=== PATIENT | male | born 1950 | race Caucasian/White ===

== ENCOUNTER → 2016-06-02 | Outpatient (REF) | payer MEDICARE, OTHER ==
[~2016-06-02] MED LIST: ALDA25TA2 PO; ASPI81TA13 PO; B COTAB PO; BENA25CA2 PO; BUSP5TA PO; CEFA1INJ4 IV; CEFA1INJ5 IV; COLA100C PO; DEMA20TA6 PO; DIOV40TA PO; DRIS50002 PO; FAMO40TA3 PO; FERR325T PO; FERR325T16 PO; FOLI1TAB2 PO; FURO20TA2 PO; GABA-279 PO; GABA300C3 PO; LASI20TA PO; LEVO100T5 PO; LEXA1TAB PO; LIDO5DIS36 TD; LIDO5TD TD; LIPI10TA PO; LOVE1INJ SC; MAGN500T PO; MAGN500T6 PO; MAGN64TASA PO; MELA10CA PO; METO12TA PO; METO25TA PO; METO25TA74 PO; METO25TAB PO; MICR10CA PO; MIDO25TA PO; MIDO5TA PO; MORP30TASA PO; MS C30TA PO; NEUR100C PO; ONDA1TAB15 PO; OXYC10TA12 PO; PERCOCET PO; POTA2TAB2 PO; PROBCAP14 PO; PROT1TAB2 PO; QUET1TAB7 PO; RANI300T PO; ROXI1TAB2 PO; SENO8.6T2 PO; SERO1TAB3 PO; SUCR1SS PO; SYNT50TA PO; TAMS0.4C2 PO; TYLE325T5 PO; VALA500T PO; VITA100066 PO; VITA400C2 PO; VITA500T88 PO; VITA8000 PO; VITAPULSE PO; [UNRECOGNIZED DRUG - CODE] SL
[2016-06-02 15:36] LABS: BASO # 0.1 K/mm3 (0.0-0.2); BASO % 1.1 % (0.0-1.0); EOS # 0.1 K/mm3 (0.0-0.50); EOS % 2.3 % (0.0-3.0); LARGE UNSTAINED CELL # 0.1 K/mm3 (0.0-0.4); LARGE UNSTAINED CELL % 2.2 % (0.0-4.0); LYMPH # 1.3 K/mm3 (1.5-4.5); LYMPH % 20.2 % (24.0-44.0); MEAN CORPUSCULAR HEMOGLOBIN 31.3 pg (27.0-33.0); MEAN CORPUSCULAR VOLUME 94.7 fl (80.0-96.0); MONO # 0.5 K/mm3 (0.0-0.8); MONO % 8.7 % (0.0-5.0); NEUTROPHILS # 3.9 K/mm3 (1.8-7.7); NEUTROPHILS % 65.4 % (36.0-66.0); PLATELET COUNT, AUTOMATED 244 k/mm3 (150-450); RED CELL DISTRIBUTION WIDTH 14.2 % (11.5-14.5)
[2016-06-02 16:06] LABS: ERYTHROCYTE SEDIMENTATION RATE 27 mm/hr (0-20)
[2016-06-02 16:15] LABS: ALBUMIN 2.3 GM/DL (3.2-5.2); ALBUMIN/GLOBULIN RATIO 0.74 (1.00-1.93); ALKALINE PHOSPHATASE 141 U/L (45-117); ALT/SGPT 20 U/L (12-78); ANION GAP 9 MEQ/L (8-16); AST/SGOT 28 U/L (15-37); BILIRUBIN,TOTAL 0.7 MG/DL (0.2-1.0); BLOOD UREA NITROGEN 16 MG/DL (7-18); CALCIUM LEVEL 8.3 MG/DL (8.8-10.2); CARBON DIOXIDE LEVEL 28 MEQ/L (21-32); CHLORIDE LEVEL 98 MEQ/L (98-107); CREATININE FOR GFR 0.82 MG/DL (0.70-1.30); GLOMERULAR FILTRATION RATE > 60.0 (>49); GLUCOSE, FASTING 87 MG/DL (80-110); POTASSIUM SERUM 4.5 MEQ/L (3.5-5.1); SODIUM LEVEL 135 MEQ/L (136-145); TOTAL PROTEIN 5.4 GM/DL (6.4-8.2)
== END ==
LOC: M SFHCPLAZ 14:25
PROVIDERS: ATTEND Internal Medicine Infectious Disease
DX: M46.40 Discitis, unspecified, site unspecified (principal); R63.4 Abnormal weight loss
CPT/HCPCS: 36415; 80053; 84443; 85025; 85652; 86140; G0463

== ENCOUNTER → 2016-08-13 | Outpatient (CLI) | payer MEDICARE, BC, OTHER ==
[~2016-08-13] MED LIST changes: -COLA100C PO; +COLA100C3 PO; +GABA-282 PO; -GABA300C3 PO
[2016-08-13 19:01] LABS: ALBUMIN 2.7 GM/DL (3.2-5.2); ALBUMIN/GLOBULIN RATIO 0.79 (1.00-1.93); ALKALINE PHOSPHATASE 117 U/L (45-117); ALT/SGPT 18 U/L (12-78); ANION GAP 7 MEQ/L (8-16); AST/SGOT 20 U/L (15-37); BILIRUBIN,TOTAL 0.3 MG/DL (0.2-1.0); BLOOD UREA NITROGEN 29 MG/DL (7-18); CALCIUM LEVEL 8.4 MG/DL (8.8-10.2); CARBON DIOXIDE LEVEL 29 MEQ/L (21-32); CHLORIDE LEVEL 96 MEQ/L (98-107); CREATININE FOR GFR 1.07 MG/DL (0.70-1.30); GLOMERULAR FILTRATION RATE > 60.0 (>49); GLUCOSE, FASTING 93 MG/DL (80-110); POTASSIUM SERUM 4.7 MEQ/L (3.5-5.1); SODIUM LEVEL 132 MEQ/L (136-145); TOTAL PROTEIN 6.1 GM/DL (6.4-8.2)
[2016-08-13 19:10] LABS: BASO % 0.6 % (0.0-1.0); EOS # 0.1 K/mm3 (0.0-0.50); EOS % 1.5 % (0.0-3.0); LARGE UNSTAINED CELL # 0.1 K/mm3 (0.0-0.4); LYMPH # 0.9 K/mm3 (1.5-4.5); MEAN CORPUSCULAR HEMOGLOBIN 33.1 pg (27.0-33.0); MEAN CORPUSCULAR HGB CONC 33.2 g/dl (32.0-36.5); MEAN CORPUSCULAR VOLUME 99.7 fl (80.0-96.0); MONO # 0.6 K/mm3 (0.0-0.8); NEUTROPHILS # 7.2 K/mm3 (1.8-7.7); NEUTROPHILS % 79.9 % (36.0-66.0); PLATELET COUNT, AUTOMATED 320 k/mm3 (150-450); RED CELL DISTRIBUTION WIDTH 12.1 % (11.5-14.5)
[2016-08-13 19:12] LABS: FOLATE > 24.0 NG/ML (>5.4); VITAMIN B12 LEVEL 1809 PG/ML (247-911)
[2016-08-13 21:25] LABS: ERYTHROCYTE SEDIMENTATION RATE 106 mm/hr (0-20)
== END ==
LOC: M LAB 16:52
PROVIDERS: ATTEND Family Medicine
DX: E43 Unspecified severe protein-calorie malnutrition (principal); M46.37 Infection of intervertebral disc (pyogenic), lumbosacral region; E11.9 Type 2 diabetes mellitus without complications; Z98.84 Bariatric surgery status

== ENCOUNTER → 2016-08-13 | Outpatient (CLI) | payer MEDICARE, BC, OTHER ==
[2016-08-13 19:01] LABS: ALBUMIN 2.6 GM/DL (3.2-5.2); ALBUMIN/GLOBULIN RATIO 0.76 (1.00-1.93); ALKALINE PHOSPHATASE 111 U/L (45-117); ALT/SGPT 21 U/L (12-78); ANION GAP 7 MEQ/L (8-16); AST/SGOT 19 U/L (15-37); BILIRUBIN,TOTAL 0.2 MG/DL (0.2-1.0); BLOOD UREA NITROGEN 28 MG/DL (7-18); CARBON DIOXIDE LEVEL 29 MEQ/L (21-32); CHLORIDE LEVEL 96 MEQ/L (98-107); CHOLESTEROL LEVEL 106 MG/DL (<200); CREATININE FOR GFR 1.04 MG/DL (0.70-1.30); FERRITIN 489 NG/ML (26-388); GLOMERULAR FILTRATION RATE > 60.0 (>49); GLUCOSE, FASTING 95 MG/DL (80-110); POTASSIUM SERUM 4.7 MEQ/L (3.5-5.1); SODIUM LEVEL 132 MEQ/L (136-145); TRIGLYCERIDES LEVEL 72 MG/DL (<150)
[2016-08-13 19:10] LABS: MEAN CORPUSCULAR VOLUME 99.9 fl (80.0-96.0); RED CELL DISTRIBUTION WIDTH 12.3 % (11.5-14.5)
[2016-08-13 19:13] LABS: FOLATE > 24.0 NG/ML (>5.4); VITAMIN B12 LEVEL 1782 PG/ML (247-911)
== END ==
LOC: M LAB 17:40
PROVIDERS: ATTEND Thoracic Surgery (Cardiothoracic Vascular Surgery)
DX: K90.9 Intestinal malabsorption, unspecified (principal); E56.9 Vitamin deficiency, unspecified

== ENCOUNTER → 2016-08-13 | Outpatient (CLI) | payer MEDICARE, BC, OTHER ==
--- NOTE | 2016-08-13 19:00 | REP ---
RIGHT HIP, TWO VIEWS: HISTORY: Pain. There is no acute fracture or dislocation. There is narrowing of the joint space with associated osteophyte formation. The bony structure is osteopenic. IMPRESSION: Degenerative changes as described above. Signed by Hunter Herring MD 08/13/2016 07:02 P
--- NOTE | 2016-08-13 19:02 | REP ---
RIGHT KNEE, FIVE VIEWS: HISTORY: Pain. There is no acute fracture or dislocation. There is narrowing of the joint spaces. Osteophytes are present on the patella and tibia. The bony structure is osteopenic. Surgical clips are present in the overlying soft-tissue. IMPRESSION: Degenerative change as described above. Signed by Hunter Herring MD 08/13/2016 07:04 P
== END ==
LOC: M RAD 17:01
PROVIDERS: ATTEND Physician Assistant
DX: M16.11 Unilateral primary osteoarthritis, right hip (principal); E43 Unspecified severe protein-calorie malnutrition; M46.37 Infection of intervertebral disc (pyogenic), lumbosacral region; E11.9 Type 2 diabetes mellitus without complications; E56.9 Vitamin deficiency, unspecified; M25.761 Osteophyte, right knee; Z98.84 Bariatric surgery status

== ENCOUNTER 2016-08-20 15:57 | Emergency (ER) | payer MEDICARE, BC, OTHER ==
[~2016-08-20] VITALS: Ht 165.1 cm; Wt 54.4 kg
[2016-08-20] MEDS ORDERED: MORPHINE 2 MG/ML 1ML SYRINGE IV ONE (16:45)
[2016-08-20 17:38] LABS: BASO % 0.6 % (0.0-1.0); EOS # 0.1 K/mm3 (0.0-0.50); EOS % 1.9 % (0.0-3.0); LARGE UNSTAINED CELL # 0.1 K/mm3 (0.0-0.4); LARGE UNSTAINED CELL % 2.1 % (0.0-4.0); LYMPH # 0.9 K/mm3 (1.5-4.5); LYMPH % 13.7 % (24.0-44.0); MEAN CORPUSCULAR HGB CONC 32.8 g/dl (32.0-36.5); MEAN CORPUSCULAR VOLUME 100.6 fl (80.0-96.0); MONO # 0.6 K/mm3 (0.0-0.8); MONO % 9.9 % (0.0-5.0); NEUTROPHILS # 4.5 K/mm3 (1.8-7.7); NEUTROPHILS % 71.8 % (36.0-66.0); PLATELET COUNT, AUTOMATED 266 k/mm3 (150-450); RED CELL DISTRIBUTION WIDTH 12.1 % (11.5-14.5); WHITE BLOOD COUNT 6.3 K/mm3 (4.0-10.0)
[2016-08-20 17:55] LABS: ANION GAP 7 MEQ/L (8-16); BLOOD UREA NITROGEN 36 MG/DL (7-18); CALCIUM LEVEL 8.4 MG/DL (8.8-10.2); CARBON DIOXIDE LEVEL 30 MEQ/L (21-32); CHLORIDE LEVEL 97 MEQ/L (98-107); CREATININE FOR GFR 1.18 MG/DL (0.70-1.30); GLOMERULAR FILTRATION RATE > 60.0 (>49); GLUCOSE, FASTING 86 MG/DL (80-110); MAGNESIUM LEVEL 2.3 MG/DL (1.8-2.4); POTASSIUM SERUM 4.7 MEQ/L (3.5-5.1); SODIUM LEVEL 134 MEQ/L (136-145)
[2016-08-20 18:19] VITALS: BP 90/64
--- NOTE | 2016-08-21 10:59 | REP ---
PA LATERAL CHEST: 08/20/2016. Comparison: 02/10/2016, 02/06/2016. Clinical history: Left-sided chest pain. Findings: Sternotomy wires and clips in the mediastinum are again seen, unchanged. The blunting of the left CP angle, greater than on the two previous studies suggesting effusion and/or scar. The right CP angle is sharply defined. Interstitial changes are much improved compared to the previous study suggesting resolved interstitial edema. There is still some underlying fibrotic change. Suprahilar scarring may be present on the left. No pneumothorax or pneumomediastinum. Anterior and posterior cervical fusion are noted in the lower cervical spine as before. There are left upper quadrant surgical clips. There is colonic interposition between the dome of the liver and the diaphragm as on previous studies. I see no katt edema, gross cardiomegaly or dense consolidation. Impression: 1. Some underlying fibrotic changes and COPD with blunting of left CP angle, increased from the previous study suggesting effusion and/or scar on that left side. The right lung is well inflated and without effusion or definite infiltrate. 2. Prior sternotomy and mediastinal clips with anterior posterior fusion in the cervical spine with hardware and left upper quadrant surgical clips, all stable. 3. The vascular congestion and interstitial edema/interstitial infiltrates on previous studies are resolved with some underlying fibrosis remaining and suprahilar fibrotic changes again seen on the left. Signed by Joon Borges MD 08/23/2016 12:27 P
--- NOTE | 2016-08-22 14:37 | ECGEPIP ---
Stationary ECG Study [facility] - ED Test Date: 2016-08-20 Pat Name: NOLVIA HINSON Department: Room: - Gender: M [employer]: : 1950 Requested By: KERVIN Romero PA-C Order Number: [id number] Reading MD: Eve Kamara Measurements Intervals [place] Rate: 77 P: 39 AL: 135 QRS: -32 QRSD: 112 T: 58 QT: 377 QTc: 427 Interpretive Statements SINUS RHYTHM WITH OCCASIONAL VENTRICULAR PREMATURE COMPLEXES MARKED LEFT AXIS DEVIATION MODERATE INTRAVENTRICULAR CONDUCTION DELAY NONSPECIFIC T-WAVE ABNORMALITY DECREASED RATE 01/26/16 Electronically Signed On 08-22-2016 14:37:10 EDT by Eve Kamara
== END 2016-08-20 18:31 | disposition home or self-care (01) ==
LOC: M ED 16:37
DX: R07.89 Other chest pain (principal); M79.604 Pain in right leg

== ENCOUNTER → 2016-08-26 | Outpatient (REF) | payer MEDICARE, BC, OTHER | LOC: M LABDRAW1 13:22 | PROVIDERS: ATTEND Physician Assistant | DX: R70.0 Elevated erythrocyte sedimentation rate (principal) ==

== ENCOUNTER → 2016-10-08 | Outpatient (REF) | payer MEDICARE, OTHER ==
[2016-10-08 14:01] LABS: BASO # 0.1 K/mm3 (0.0-0.2); BASO % 0.6 % (0.0-1.0); EOS # 0.1 K/mm3 (0.0-0.50); EOS % 1.4 % (0.0-3.0); LARGE UNSTAINED CELL # 0.1 K/mm3 (0.0-0.4); LARGE UNSTAINED CELL % 0.8 % (0.0-4.0); LYMPH # 1.1 K/mm3 (1.5-4.5); LYMPH % 9.8 % (24.0-44.0); MEAN CORPUSCULAR HEMOGLOBIN 28.9 pg (27.0-33.0); MEAN CORPUSCULAR HGB CONC 31.9 g/dl (32.0-36.5); MEAN CORPUSCULAR VOLUME 90.6 fl (80.0-96.0); MONO # 0.9 K/mm3 (0.0-0.8); MONO % 8.6 % (0.0-5.0); NEUTROPHILS # 8.1 K/mm3 (1.8-7.7); NEUTROPHILS % 78.8 % (36.0-66.0); PLATELET COUNT, AUTOMATED 340 k/mm3 (150-450); RED CELL DISTRIBUTION WIDTH 13.1 % (11.5-14.5); WHITE BLOOD COUNT 10.2 K/mm3 (4.0-10.0)
[2016-10-08 14:14] LABS: ALBUMIN 2.9 GM/DL (3.2-5.2); ALBUMIN/GLOBULIN RATIO 0.76 (1.00-1.93); ALKALINE PHOSPHATASE 117 U/L (45-117); ALT/SGPT 27 U/L (12-78); ANION GAP 6 MEQ/L (8-16); AST/SGOT 27 U/L (15-37); BILIRUBIN,TOTAL 0.6 MG/DL (0.2-1.0); BLOOD UREA NITROGEN 35 MG/DL (7-18); CALCIUM LEVEL 8.8 MG/DL (8.8-10.2); CARBON DIOXIDE LEVEL 33 MEQ/L (21-32); CHLORIDE LEVEL 97 MEQ/L (98-107); CREATININE FOR GFR 1.01 MG/DL (0.70-1.30); GLOMERULAR FILTRATION RATE > 60.0 (>49); GLUCOSE, FASTING 96 MG/DL (80-110); POTASSIUM SERUM 4.7 MEQ/L (3.5-5.1); SODIUM LEVEL 136 MEQ/L (136-145); TOTAL PROTEIN 6.7 GM/DL (6.4-8.2)
[2016-10-08 14:28] LABS: ERYTHROCYTE SEDIMENTATION RATE 85 mm/hr (0-20)
== END ==
LOC: M LABDRAWP 12:30
PROVIDERS: ATTEND Family Medicine
DX: E43 Unspecified severe protein-calorie malnutrition (principal); M46.37 Infection of intervertebral disc (pyogenic), lumbosacral region; K21.9 Gastro-esophageal reflux disease without esophagitis; E11.9 Type 2 diabetes mellitus without complications

== ENCOUNTER → 2016-10-08 | Outpatient (REF) | payer MEDICARE, OTHER ==
[2016-10-08 14:18] LABS: CHOLESTEROL LEVEL 104 MG/DL (<200); FERRITIN 568 NG/ML (26-388); TRIGLYCERIDES LEVEL 65 MG/DL (<150); VITAMIN B12 LEVEL > 2000 PG/ML
[2016-10-08 14:19] LABS: FOLATE > 24.0 NG/ML
[2016-10-12 14:14] LABS: VITAMIN D 1,25 DIHYDROXY 32.8 pg/mL (19.9-79.3)
== END ==
LOC: M LABDRAWP 12:32
PROVIDERS: ATTEND Thoracic Surgery (Cardiothoracic Vascular Surgery)
DX: M46.37 Infection of intervertebral disc (pyogenic), lumbosacral region (principal); K90.9 Intestinal malabsorption, unspecified; E64.0 Sequelae of protein-calorie malnutrition; K21.9 Gastro-esophageal reflux disease without esophagitis; E11.9 Type 2 diabetes mellitus without complications

== ENCOUNTER 2016-10-23 13:00 | Emergency (ER) | payer MEDICARE, OTHER ==
[~2016-10-23] VITALS: Ht 165.1 cm; Wt 62.0 kg
[~2016-10-23 13:00] MED LIST changes: -ASPI81TA13 PO; +ASPI81TA24 PO; -COLA100C3 PO; +COLA100C5 PO; +FERR1TAB8 PO; -FERR325T PO; -FOLI1TAB2 PO; +FOLI1TAB4 PO; -LIDO5DIS36 TD; +LIDO5DIS41 TD; +METO1TAB32 PO; -METO25TA74 PO; +MIDO2.5T PO; -MIDO25TA PO; -MS C30TA PO; +MS C30TA6 PO; -ONDA1TAB15 PO; +ONDA4TAB5 PO; -SENO8.6T2 PO; +SENO8.6T5 PO; -VALA500T PO; +VALA500T2 PO; -VITA400C2 PO; +VITA400C7 PO; -VITA8000 PO; +VITA80003 PO; +[UNRECOGNIZED DRUG - CODE] SL; -[UNRECOGNIZED DRUG - CODE] SL
[2016-10-23] MEDS ORDERED: NS 500 ML IV ONE ×2 (13:30→15:00)
[2016-10-23 13:45] LABS: DIFF SLIDE NUMBER 129; MEAN CORPUSCULAR HEMOGLOBIN 28.3 pg (27.0-33.0); MEAN CORPUSCULAR HGB CONC 32.6 g/dl (32.0-36.5); MEAN CORPUSCULAR VOLUME 86.9 fl (80.0-96.0); PLATELET COUNT, AUTOMATED 320 k/mm3 (150-450); RED CELL DISTRIBUTION WIDTH 13.6 % (11.5-14.5); WHITE BLOOD COUNT 14.6 K/mm3 (4.0-10.0)
[2016-10-23] MEDS ORDERED: ACETAMINOPHEN TAB 650MG DOSE (2X325MG) PO ONE (13:45)
[2016-10-23] MEDS ORDERED: MIDO2.5T PO ×2 (13:47→15:49)
[2016-10-23] MEDS ORDERED: OXYC1CAP PO ×2 (13:55→15:49)
[2016-10-23] MEDS ORDERED: MORP30TASA PO ×2 (13:55→15:49)
[2016-10-23 13:59] LABS: ALBUMIN 2.5 GM/DL (3.2-5.2); ALBUMIN/GLOBULIN RATIO 0.61 (1.00-1.93); BILIRUBIN,DIRECT 0.2 MG/DL (0.0-0.2); BILIRUBIN,TOTAL 0.7 MG/DL (0.2-1.0); CALCIUM LEVEL 7.9 MG/DL (8.8-10.2); CREATININE FOR GFR 1.44 MG/DL (0.70-1.30); GLOMERULAR FILTRATION RATE 51.9 (>49); POTASSIUM SERUM 4.6 MEQ/L (3.5-5.1); TOTAL PROTEIN 6.6 GM/DL (6.4-8.2)
[2016-10-23] MEDS ORDERED: cefTRIAXone SOD 2 GM in D5W MINI-BAG PLUS 50 ML IV ONE (14:00)
[2016-10-23] MEDS ORDERED: AZITHROMYCIN INJ 500 MG, VIAL MATE ADAPTER 1 EACH in D5W 250 ML IV ONE (14:00)
--- NOTE | 2016-10-23 14:02 | REP ---
Clinical: Altered mental status. Comparison: None . Findings: Age-related atrophy and microvascular ischemic changes are appreciated. The ventricles and sulci are symmetric. Garsia-white differentiation is maintained. There is no evidence for acute intracranial hemorrhage, mass/mass effect, pathology or infarction. No extra-axial fluid collection. Calvarium is intact. Paranasal sinuses and mastoid air cells are clear. Impression: Age related atrophy and microvascular ischemic changes. No acute intracranial hemorrhage, infarction, or mass/mass effect. Signed by Bruce Beckham MD 10/23/2016 01:53 P
--- NOTE | 2016-10-23 14:04 | REP ---
Clinical: Shortness of breath. Technique: AP and lateral. Comparison: 08/20/2016. Findings: Cardiomegaly with diffuse chronic interstitial changes with superimposed bilateral infiltrates and moderate to large left effusion. Differential diagnosis includes CHF and multifocal pneumonia. Impression: Superimposed bilateral infiltrates and moderate to large left effusion. Differential diagnosis includes CHF and multifocal pneumonia. Signed by Bruce Beckham MD 10/23/2016 01:56 P
[2016-10-23 14:07] LABS: ADD MANUAL DIFFER NO; ADD MORPHOLOGY? NO; BASO # 0.1 K/mm3 (0.0-0.2); BASO % 0.3 % (0.0-1.0); LARGE UNSTAINED CELL # 0.2 K/mm3 (0.0-0.4); LARGE UNSTAINED CELL % 1.3 % (0.0-4.0); LYMPH # 0.6 K/mm3 (1.5-4.5); LYMPH % 4.1 % (24.0-44.0); MONO % 6.5 % (0.0-5.0); NEUTROPHILS # 13.7 K/mm3 (1.8-7.7); NEUTROPHILS % 87.8 % (36.0-66.0)
[2016-10-23] MEDS ORDERED: BUSP5TA PO (15:49)
[2016-10-23] MEDS ORDERED: MAGN400T5 PO (15:49)
[2016-10-23] MEDS ORDERED: ONDA4TAB5 PO (15:49)
[2016-10-23] MEDS ORDERED: LIDO5DIS41 TD (15:49)
[2016-10-23] MEDS ORDERED: GABA-282 PO ×2 (15:49)
[2016-10-23] MEDS ORDERED: DRIS50002 PO (15:49)
[2016-10-23] MEDS ORDERED: SYNT100T PO (15:49)
[2016-10-23] MEDS ORDERED: SPIR25TA2 PO (15:49)
[2016-10-23] MEDS ORDERED: TORS20TA2 PO (15:49)
[2016-10-23] MEDS ORDERED: LEXA1TAB PO (15:49)
[2016-10-23] MEDS ORDERED: PANT40TA2 PO (15:49)
[2016-10-23] MEDS ORDERED: MAGN500T14 PO (15:51)
[2016-10-23] MEDS ORDERED: DOPamine HCL 400 MG in APPROPRIATE DILUENT 1 EA IV SCH (16:15)
[2016-10-23 16:18] LABS: ABG BASE EXCESS 6.7 (-2.0-2.0); ABG HCO3 31.3 MEQ/L (22.0-26.0); ABG PARTIAL PRESSURE CO2 45.5 mmHg (35.0-45.0); ABG PARTIAL PRESSURE O2 70.4 mmHg (75.0-100.0); ABG STANDARD HCO3 30.5 MEQ/L (22.0-26.0); ABG TOTAL CO2 32.7 MEQ/L (23.0-31.0); ABG pH (ARTERIAL) 7.456 UNITS (7.350-7.450)
[2016-10-23] MEDS ORDERED: FUROSEMIDE 40 MG/4 ML VIAL (J1940) IV ONE (16:45)
[2016-10-23 18:22] VITALS: BP 93/61
--- NOTE | 2016-10-23 21:27 | ECGEPIP ---
Stationary ECG Study [facility] - ED Test Date: 2016-10-23 Pat Name: NOLVIA HINSON Department: Room: - Gender: M [employer]: patt : 1950 Requested By: BRAD Taylor Order Number: [id number] Reading MD: Eve Kamara Measurements Intervals [place] Rate: 108 P: 26 MA: 124 QRS: -68 QRSD: 122 T: 121 QT: 356 QTc: 478 Interpretive Statements SINUS TACHYCARDIA POSSIBLE RIGHT VENTRICULAR CONDUCTION DELAY LEFT ANTERIOR FASCICULAR BLOCK MODERATE ST DEPRESSION CLINICAL CORRELATION COMPARED 08/20/16 Electronically Signed On 10-23-2016 21:27:13 EDT by Eve Kamara
--- NOTE | 2016-10-23 21:29 | ECGEPIP ---
Stationary ECG Study [facility] - ED Test Date: 2016-10-23 Pat Name: NOLVIA HINSON Department: Room: - Gender: M [employer]: patt : 1950 Requested By: BRAD Taylor Order Number: [id number] Reading MD: Eve Kamara Measurements Intervals [place] Rate: 87 P: 67 FL: 144 QRS: -62 QRSD: 120 T: 185 QT: 396 QTc: 477 Interpretive Statements SINUS RHYTHM LAE LEFT ANTERIOR FASCICULAR BLOCK INFERIOR MYOCARDIAL INFARCTION, OF INDETERMINATE AGE MODERATE T-WAVE ABNORMALITY, CONSIDER LATERAL ISCHEMIA DECREASED RATE 10/23/16 Electronically Signed On 10-23-2016 21:29:17 EDT by Eve Kamara
--- NOTE | 2016-10-23 22:08 | CR ---
DATE OF CONSULTATION: 10/23/2016 CHIEF COMPLAINT: A 66-year-old gentleman coming in complaining of shortness of breath. 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 The patient was evaluated in the emergency room, noted to have soft blood pressure in the 90s with saturation in the 70s on room air, with abnormal laboratory of troponin if 3.57, and brain natriuretic peptide (BNP) greater than 5000, hyponatremia of 128, with chest x-ray findings superimposed bilateral infiltrates with moderate to large left effusion. Differential diagnosis includes congestive heart failure (CHF) and multifocal pneumonia, who does not utilize any home oxygen therapy such as nasal cannula or continuous positive airway pressure (CPAP) or bilevel positive airway pressure (BiPAP). The patient received oxygen therapy saturating 98% on six liters of nasal cannula. Emergency room (ER) physician spoke to Dr. Oconnell who suspected initially that the patient had ischemic cardiac demand due to pneumonia. He requested admission for pneumonia treatment with intravenous (IV) fluids. Dr. Banks the basket machine operator was consulted. Due to severity of patient's condition , as his last known ejection fraction again is 30% in 2016, with elevated BNP and positive troponin, suspected a possible pending cardiogenic shock and need for further intervention suggests cardiac catheterization, balloon pump, [place], CPAP, BiPAP, or intubation along with pressors and Lasix drip. The patient is intermittently lucid, able to provide some medical history, but at times confused and disoriented. The patient denies having any chest pain, denies having any chest pain previously. Complained of shortness of breath that started two weeks ago, but also informs the staff that he had difficulty breathing two years ago. Denies any abdominal pain, diarrhea or dysuria. The patient has lower extremity swelling that seemed to come up to the knee and thigh bilaterally. After conversing with the specialists Dr. Banks and Dr. Oconnell who had evaluated the patient in the emergency room, there was an agreement that the patient should be transferred to tertiary center for further evaluation and treatment, as the patient also mentioned that he wanted aggressive therapy and FULL CODE as last known in 2016. His cardiologists are in [place]; therefore, the patient will be transferred to [place] for further intervention and treatment and evaluation. REVIEW OF SYSTEMS: 10-point review of systems negative other than as described in the history of present illness (HPI). 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 SURGICAL HISTORY Includes a history of cervical fusion, gastric bypass, CABG times three, triple bypass at [facility], cardiac catheterization times three, status post one stent in 2002, appendectomy, osteomyelitis of the right arm ulnar bone graft in 1960. FAMILY MEDICAL HISTORY: Includes father with heart disease with bypass, COPD, diabetes, toe gangrene, aneurysm. Mother with massive coronary heart attack, bypass, pacemaker, thyroid disease, pancreatitis. Brother with severe arthritis, diabetes. Sister with gestational diabetes, along with stroke, thyroid disease. Family history of Von Willebrand disease and kidney stones. SOCIAL HISTORY: The patient denies smoking, drinking or drug abuse. ALLERGIES: 1. BEE VENOM 2. BROMPHENIRAMINE 3. CONTRAST MEDIA 4. HEXACHLOROPHENE 5. IODINATED DIAGNOSTIC AGENT 6. LACTOSE 7. MAGNESIUM 8. PSEUDOEPHEDRINE 9. QUETIAPINE 10. RIFAMPIN which causes diarrhea. HOME MEDICATIONS: - buspirone 5 mg by mouth three times a day - Lexapro 10 mg by mouth daily - gabapentin 300 mg by mouth daily - gabapentin 600 mg by mouth at bedtime - Synthroid 100 mcg by mouth daily - lidocaine three patches transdermal every 12 hours - magnesium oxide 500 mg by mouth at bedtime - midodrine 2.5 mg by mouth three times a day - morphine sulfate ER 30 mg by mouth twice a day - Zofran 4 mg by mouth every four hours as needed for nausea - oxycodone hydrochloride 10 mg by mouth three times a day - pantoprazole 40 mg by mouth daily - spironolactone 25 mg by mouth daily - torsemide 20 mg by mouth twice a day - vitamin D 50,000 units by mouth two times per week, Tuesday and PHYSICAL EXAMINATION: VITAL SIGNS: His initial blood pressure was 99/68, temperature 99.7, heart rate of 104, respiratory rate 18, saturating 78% on room air, improved to 96% on oxygen therapy. The patient's blood pressure fluctuated lowest at 77/56. Last known blood pressure 93/61. Temperature is 98.7, heart rate of 92, respiratory rate of 20, saturating 98% on CPAP along with the patient is on a dopamine drip with Barrientos placement and status post Lasix therapy. HEENT: Normocephalic. No trauma. Inspection of the eyes, nose and throat is within normal limits. Pupils equal, round, and reactive to light and accommodation. Mucus is moist. NECK: Supple. Jugular venous distention (JVD) noted positive. CARDIAC: S1, S2. Regular rate and rhythm. Pulses present. LUNGS: Equal entry, wheezes are noted, crackles bilaterally. ABDOMEN: Soft, nontender. Bowel sounds present. EXTREMITIES: Lower extremity pitting edema up to the thigh bilaterally. The patient currently has CPAP, dopamine drip, status post Lasix therapy, Barrientos. NEUROLOGIC: The patient is awake, alert intermittently, able to provide some lucid medical information at times. Cranial nerves grossly intact. Motor and sensory intact but limited due to initially shortness of breath. DIAGNOSTIC STUDIES: The patient had WBC of 14.6, hemoglobin and hematocrit of 8.6 and 26.5, platelet count 320. Complete metabolic profile is within normal except for sodium of 128, chloride 89, BUN of 48, creatinine 1.44. Fasting glucose 135. Calcium is 7.9. Albumin is 2.5. Otherwise complete metabolic profile is within normal. Troponin is elevated to 3.57, increased to 3.81. BNP is elevated greater than 5000. TSH is within normal. Lactate is 1.7. Urine negative for urinary tract infection. PH of 7.456, pCO2 of 45.5, pO2 of 70.4, bicarbonate of 31.3, saturating 91.1. MICROBIOLOGY: Urine culture and blood culture are pending. IMAGING: Shows CT of the head which was negative for any acute process, but as per radiology, showed age-related atrophy and microvascular ischemic changes. Chest x-ray as per radiology showed superimposed bilateral infiltrates and moderate to large left effusion. Differential diagnosis includes CHF and multifocal pneumonia. ASSESSMENT AND PLAN: 66-year-old gentleman with significant past medical history mentioned above, with last known ejection fraction of 30% in 2016, and FULL CODE last noted in 2016, who currently informed us that he wanted aggressive therapy, had stent placement and sign language teacher in [place], status post evaluation by Dr. Oconnell and Dr. Banks in the emergency room, believes that patient will be better treated with optimal medical management at [place] for NSTEMI, pulmonary edema, and cardiogenic shock; and need for cardiology intervention not available in [place]. Therefore, the patient is being transferred from the emergency room to [place] under their care. The patient is status post oxygen therapy, CPAP, dopamine drip, femoral line placement by staff, along with initiation of dopamine drip, Lasix therapy as recommended by Floyd Cortes and transfer accepted by [place]. We will defer further management to the ER physician and staff at [place]. HARIKA
--- NOTE | 2016-10-23 22:08 | CR ---
DATE OF CONSULTATION: 10/23/2016 REFERRING PHYSICIAN: Dr. Derick Wick. REASON FOR CONSULTATION: Cardiogenic shock, acute on chronic heart failure, acute pulmonary edema, non-ST segment elevation myocardial infarction (N-STEMI). HISTORY OF PRESENT ILLNESS: At present, the patient is having difficulty providing a history because he is quite ill with hypotension and pulmonary edema. The patient was able to tell me that he had a prior three-vessel coronary artery bypass graft surgery operation in 1995, in [place], [place]. To his knowledge he has never had a prior heart attack or percutaneous coronary intervention of any type. He has no knowledge of any prior heart failure. The patient presented to the emergency room (ER) earlier today with chest pain and shortness of breath. He was mildly febrile and had leukocytosis and bilateral infiltrates on chest x-ray and a very elevated brain natriuretic peptide (BNP) level and a mildly elevated troponin I level. I have reviewed a discharge summary on this patient from his hospitalization to [facility] [place] dated 02/11/2016, until 04/07/2016. This indicates the presence of coronary artery disease, chronic systolic heart failure, hypothyroidism, chronic obstructive pulmonary disease (COPD). I was told at the patient's bedside by Dr. Rafaela Banks who was present, that a quick look on the echocardiogram showed an ejection fraction of about "30%." Jugular venous pulsations were to the angle of the jaw at about 30 degrees. Edentulous. The patient was oriented to person and place and time. He was not in any psychologic distress. Bibasilar crackles over the lower half lung gonzalez are present. Midline sternal scar present. First and second heart sounds showed accentuation of the P2 component of the second heart sound. An S3 was present. No S4 appreciated. [place] beat was enlarged in the left fifth interspace at the left midclavicular line. Abdomen was soft and nontender with normal bowel sounds. No cyanosis, pallor or icterus. 4 mm of pitting edema was present at mid and distal tibial level bilaterally. Pedal pulses were not palpable. Electrocardiogram 10/23/2016, shows sinus rhythm, 87 beats per minute (BPM), poor R-wave progression, prominent S waves and S1, S2, S3 pattern, consider pulmonary disease, left axis deviation, borderline low voltages. Nonspecific ST-T abnormalities, consider anterolateral ischemia. Cannot rule out old inferior wall myocardial infarction. With poor R-wave progression, consider old anterior wall myocardial infarct. At the time of examination, the patient had a blood pressure of 83/59, and a pulse of 88 (regular). Respiratory rate 18, temperature 100.3 rectal, and 99.7 oral. Oxygen saturation was 96% on oxygen four liters per minute by nasal cannula. I have independently visualized the patient's portable AP chest x-ray 10/23/2016 , and it shows cardiomegaly, midline sternal wires, and mediastinal surgical clips consistent with status post coronary artery bypass graft (CABG). Bilateral patchy alveolar infiltrates, bilateral interstitial and patchy alveolar pulmonary edema. Cannot rule out a left pleural effusion. No right pleural effusion. Pulmonary vascular redistribution is present. LABORATORY DATA: Laboratory work 10/23/2016, was reviewed. WBC 14.6, hemoglobin 8.6, hematocrit 26.5, platelets 320. Sodium 128, potassium 4.6, chloride 89, CO2 30, BUN 48, creatinine 1.44, GFR 51.9, glucose 135, lactic acid 1.7, troponin I 3.57, CPK 72 , CPK-MB 2.5%, can be 3.47%, BNP greater than 5000. Albumin 2.5. TSH 3.28. Arterial blood gas showed bicarbonate 30.5, pH 7.456, pCO2 45.5, pO2 70.4, bicarbonate 31.4, CO2 32.7, oxygen saturation 93.1%. ASSESSMENT AND RECOMMENDATIONS: 1. Cardiogenic shock. The patient has underlying systolic and diastolic heart failure. He is now in cardiogenic shock and decompensated heart failure with bilateral alveolar pulmonary edema. He is also in hypoxic respiratory failure with superimposed metabolic alkalosis. He is FULL CODE. His prognosis is poor with an anticipated in-hospital survival of about 10% over the next 30 days. His troponin I is elevated which most likely is due to subendocardial hypoperfusion due to severe heart failure, but could also be due to acute coronary thrombosis with a primary non-ST segment elevation myocardial infarction. He is in the process of getting a central line inserted following which he will be placed on pressors (dopamine) which I concur with. It is my recommendation that the patient be transferred to [facility] for tertiary care management, and I spoke with Dr. Banks and Dr. Rodrick North, the ER physician, who are in agreement. Dr. Rodrick North contacted [facility] to make arrangements for the patient to be transferred. Once the patient has been placed on pressors and blood pressure improves, I recommend the patient be given a high dose of furosemide. 2. Acute on chronic systolic and diastolic heart failure. As per cardiogenic shock category above. 3. Acute pulmonary edema secondary to acute on chronic systolic and diastolic heart failure. As per cardiogenic shock category above. 4. Non-ST segment elevation myocardial infarction (N-STEMI). As discussed above, this could be secondary to heart failure or it could be a new primary coronary ischemic event. Recommend IV heparin, aspirin, and Plavix. Total time spent looking after this patient at the bedside, and preparing this portion of the patient's medical record, and reviewing his medical records was 33 minutes. HARIKA
--- NOTE | 2016-10-24 12:02 | CCN ---
DATE: 10/23/2016 NOTE: I was asked to emergently come to the emergency department to assist the hospitalist with Mr. Rhodes. Mr. Rhodes is a 66-year-old male who was transported to the hospital for change in mental status. When EMS arrived, he apparently had been saturating in the 80th percentile. Upon arrival to the emergency department, he was saturating 73 % on room air which corrected to 99% on 6 liters by nasal cannula. His immediate workup included a chest x-ray which showed pulmonary edema and an EKG which showed inversion of the T waves in the anterior leads and BNP greater than 5000. The history that they had was that he had had a fever recently to 103 degrees (later clarified with his , two days ago). On arrival to the emergency department, his temperature rectally was 100.3. His white blood cell count was 14.3. Arterial blood gas was obtained which showed a compensated metabolic alkalemia. He had been given 500 mL of normal saline upon arrival while he was being stabilized. When I spoke with Mr. Rhodes, he denied any cough. He denied shortness of breath. He noted pain in his right hip but denied chest pain or pressure. He was confused and could not offer much additional history. His physical examination had shown him to be saturating 99-100% on 6 liters by nasal cannula. He was lying on the gurney at a 45-50 degree angle. His blood pressure showed a MAP of 67, respiratory rate was in the high teens to low 20s. His heart rate upon arrival had been in the 110's but was now 85. HEENT showed him to be anicteric. Oral mucosa was moist. Neck showed elevated IJD to the level of his ears. Lung exam showed diffuse crackles throughout, heard both anteriorly and posteriorly. No wheeze or rhonchi. Cardiac evaluation showed regular rate and rhythm, normal S1 and S2. No murmur, rub or gallop appreciated. Abdomen showed positive bowel sounds. It was soft and nondistended. Extremities showed 2+ pedal edema, 1+ pretibial edema. His extremities initially were neutral in temperature and throughout our evaluation became cooler. It became apparent that he was experiencing cardiogenic shock. Dr. Oconnell was contacted and asked to come in to help in the management. Multiple attempts were made to reach his family. That included calling his whose phone inadvertently had been give to the patient and it rang in he emergency department room. The emergency department personnel attempted to contact his sons, a "uncle Troy" and several others on her phone without success. Eventually we called the [place] emergency department and asked if they have different contact numbers, which they did not, and then they were asked to go to his home. In the meantime, conversations with Mr. Rhodes between myself and the three hospitalists who were in attendance did not yield clear answers as to what his wishes were. We explained the limitations of what we could do for cardiogenic shock, but made it clear that we could not offer the full services if intervention was needed. He kept telling us he would like to stay here as he told us that "liked us." He did not decline or accept transfer to [place]. Personnel had reviewed his chart and as of the fall he was a FULL CODE. Other findings on his examination and on his chest x-ray had shown that he had had a previous coronary artery bypass grafting (CABG). He denied a stent or angioplasty (later his clarified to me that he did have a stent and had a recent catheterization last fall that had shown a blockage, but he had collaterals). 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 He could tell us he was in [place] but not the type of building he was in. In terms of his immediate management, a femoral line was placed by Dr. Nicole as he could not lay supine for an IJ or subclavian line to be placed. I had him started on CPAP for both preload reduction and to decrease afterload as an left ventricular assist device. Dr. Oconnell had arrived and felt he should be immediately transferred. His had arrived and I informed her of the situation and she consented to a transfer, stating a preference for [place] as that is where his assistant women's tennis coach was located. He is followed locally by Dr. Araya. After the central line was placed, he was started on low dose dopamine with an attempt to increase his pressure to allow a diuretic to be given. The dosage was very low in an attempt to try to prevent tachycardia. On a very low dose of dopamine 0.5 mcg/ kg per minute he was able to achieve a systolic of around 90 and a MAP of 72 allowing us to feel we could give Lasix. On the CPAP he was very comfortable and breathing easily. He was felt ready to transfer at this time and he was transferred to [place]. DIAGNOSIS: 1. Cardiogenic shock. 2. Pulmonary edema. DISPOSITION: Transfer to [place]. CRITICAL CARE TIME: I was involved in the emergency department with him for 1 hour and 55 minutes. However, there were multiple providers involved and while I was involved the entire time, I feel my individual critical care time involved 60 minutes. HARIKA
== END 2016-10-23 18:28 | disposition short-term general hospital (02) ==
LOC: M ED 13:00 → EDSEX 13:00 → EDBD 13:00 → M ED 18:28
DX: I21.4 Non-ST elevation (NSTEMI) myocardial infarction (principal); R57.0 Cardiogenic shock; D64.9 Anemia, unspecified; J18.9 Pneumonia, unspecified organism; I50.9 Heart failure, unspecified; J44.9 Chronic obstructive pulmonary disease, unspecified; E03.9 Hypothyroidism, unspecified; G89.29 Other chronic pain; M54.5 Low back pain; K21.9 Gastro-esophageal reflux disease without esophagitis; Z88.8 Allergy status to other drugs, medicaments and biological substances; Z91.030 Bee allergy status; Z91.041 Radiographic dye allergy status; Z91.011 Allergy to milk products; Z79.82 Long term (current) use of aspirin; Z79.899 Other long term (current) drug therapy
CPT/HCPCS: 36556; 36600; 70450; 71020; 80048; 80076; 81001; 82550; 82553; 82803; 83605; 83880; 84443; 84484; 85025; 87040; 87086; 93005; 93041; 96361; 96374; 96375; 99285; J0456; J0696; J1265; J1940

== ENCOUNTER → 2016-11-04 | Outpatient (REF) ==
[~2016-11-04] MED LIST changes: +ASPI81TA85 PO; +ATOR1TAB21 PO; +DOCU100T8 PO; +DULC10SU2 PR; +ENEMENE16 PR; +GABA600T PO; +IPRA2IN INH; +KEFL500C17 PO; +LISI2.5T3 PO; +MAGN400T5 PO; +MAGN500T14 PO; +MIRA33504 PO; +MORP-38 PO; +OXYC-517 PO; +OXYC1CAP PO; +PANT40TA2 PO; +SPIR25TA2 PO; +SYNT100T PO; +TORS20TA2 PO
--- NOTE | 2016-11-04 16:38 | REP ---
Right hip and a single AP view: Comparisons 08/13/2016. There is a fracture of the femoral neck, not present previously. There is no displacement. There is diffuse demineralization. Impression: Nondisplaced femoral neck fracture. Signed by Matias Serrato MD 11/04/2016 04:30 P
[2016-11-04 18:36] LABS: MEAN CORPUSCULAR HEMOGLOBIN 28.1 pg (27.0-33.0); MEAN CORPUSCULAR HGB CONC 31.1 g/dl (32.0-36.5); MEAN CORPUSCULAR VOLUME 90.4 fl (80.0-96.0); RED CELL DISTRIBUTION WIDTH 14.4 % (11.5-14.5)
== END ==
PROVIDERS: ATTEND Internal Medicine
DX: L03.119 Cellulitis of unspecified part of limb (principal)

== ENCOUNTER 2016-11-05 08:28 | Inpatient (IN) | payer MEDICARE, BC, OTHER ==
[~2016-11-05 08:28] MED LIST changes: -ASPI81TA85 PO; -ATOR1TAB21 PO; -DOCU100T8 PO; -DULC10SU2 PR; -ENEMENE16 PR; -GABA600T PO; -IPRA2IN INH; -KEFL500C17 PO; -LISI2.5T3 PO; -MIRA33504 PO; -MORP-38 PO; -OXYC-517 PO
[2016-11-05] MEDS ORDERED: METO1TAB32 PO (08:58)
[2016-11-05] MEDS ORDERED: LISI2.5T3 PO (08:58)
[2016-11-05] MEDS ORDERED: ATOR1TAB21 PO (08:58)
[2016-11-05] MEDS ORDERED: MORP-38 PO (08:58)
[2016-11-05] MEDS ORDERED: ASPI81TA85 PO (08:58)
[2016-11-05] MEDS ORDERED: FURO20TA2 PO (08:58)
[2016-11-05] MEDS ORDERED: KEFL500C17 PO (08:58)
[2016-11-05] MEDS ORDERED: FUROSEMIDE 20 MG TAB PO SCH (09:00)
[2016-11-05 09:25] LABS: MEAN CORPUSCULAR HEMOGLOBIN 27.4 pg (27.0-33.0); MEAN CORPUSCULAR VOLUME 88.4 fl (80.0-96.0); PLATELET COUNT, AUTOMATED 282 k/mm3 (150-450); RED CELL DISTRIBUTION WIDTH 14.4 % (11.5-14.5); WHITE BLOOD COUNT 5.1 K/mm3 (4.0-10.0)
[2016-11-05 09:30] LABS: ALBUMIN 2.1 GM/DL (3.2-5.2); ALKALINE PHOSPHATASE 87 U/L (45-117); ALT/SGPT 15 U/L (12-78); ANION GAP 3 MEQ/L (8-16); AST/SGOT 20 U/L (15-37); BASO # 0.1 K/mm3 (0.0-0.2); BASO % 1.5 % (0.0-1.0); BILIRUBIN,DIRECT 0.2 MG/DL (0.0-0.2); BILIRUBIN,TOTAL 0.4 MG/DL (0.2-1.0); BLOOD UREA NITROGEN 11 MG/DL (7-18); CALCIUM LEVEL 7.6 MG/DL (8.8-10.2); CARBON DIOXIDE LEVEL 33 MEQ/L (21-32); CHLORIDE LEVEL 91 MEQ/L (98-107); CREATININE FOR GFR 0.55 MG/DL (0.70-1.30); EOS # 0.2 K/mm3 (0.0-0.50); EOS % 4.4 % (0.0-3.0); GLOMERULAR FILTRATION RATE > 60.0 (>49); GLUCOSE, FASTING 86 MG/DL (80-110); LARGE UNSTAINED CELL # 0.1 K/mm3 (0.0-0.4); LARGE UNSTAINED CELL % 2.1 % (0.0-4.0); LYMPH # 0.7 K/mm3 (1.5-4.5); LYMPH % 12.8 % (24.0-44.0); MONO # 0.5 K/mm3 (0.0-0.8); MONO % 8.8 % (0.0-5.0); NEUTROPHILS # 3.6 K/mm3 (1.8-7.7); NEUTROPHILS % 70.5 % (36.0-66.0); SODIUM LEVEL 127 MEQ/L (136-145); TOTAL PROTEIN 5.1 GM/DL (6.4-8.2)
[2016-11-05 09:39] LABS: INR 1.31
[2016-11-05] MEDS: NS 1,000 ML IV SCH ×2 (09:46→20:08)
--- NOTE | 2016-11-05 09:47 | REP ---
AP pelvis: Comparison is the right hip study dated 11/04/2016. There is a fracture of the right femoral neck. There is diffuse demineralization. There is deformity of the right iliac wing. There is no dislocation. Signed by Matias Serrato MD 11/05/2016 09:38 A
--- NOTE | 2016-11-05 09:50 | REP ---
Right femur four views: Comparison 11/04/2016. There is diffuse demineralization. There is a fracture of the right femoral neck. This may be a pathologic fracture. There is deformity of the right iliac wing. The femoral shaft demonstrates demineralization. There appears to be bowing of the femoral shaft although this could be artifact from projection. No other fracture is identified. There is no dislocation of the femoral head. Signed by Matias Serrato MD 11/05/2016 09:42 A
--- NOTE | 2016-11-05 10:06 | REP ---
CHEST, ONE VIEW: HISTORY: Preop. COMPARISON: 10/23/2016. A diffuse increased in interstitial markings is present in the lungs consistent with chronic interstitial fibrosis. Increased density is present in the left lower lobe consistent with atelectasis or infiltrate. A small left pleural effusion is present. The cardiac silhouette is enlarged. IMPRESSION: 1. Chronic interstitial fibrosis. 2. Left lower lobe atelectasis or infiltrate and small left pleural effusion. 3. Cardiomegaly. Signed by Hunter Herring MD 11/05/2016 10:24 A
[2016-11-05] MEDS ORDERED: PANT40TA2 PO (10:18)
[2016-11-05] MEDS ORDERED: MIRA33504 PO (10:18)
[2016-11-05] MEDS ORDERED: GABA600T PO (10:18)
[2016-11-05] MEDS ORDERED: DOCU100T8 PO (10:18)
[2016-11-05] MEDS ORDERED: OXYC-517 PO (10:18)
[2016-11-05] MEDS ORDERED: DULC10SU2 PR (10:23)
[2016-11-05] MEDS ORDERED: IPRA2IN INH (10:23)
[2016-11-05] MEDS ORDERED: ENEMENE16 PR (10:23)
[2016-11-05] MEDS ORDERED: SPIR25TA2 PO (10:23)
[2016-11-05] MEDS ORDERED: BISACODYL 10 MG SUPP PR PRN (12:15)
[2016-11-05] MEDS ORDERED: MIRALAX *UNIT DOSE* 17GM PACKET PO PRN (12:15)
[2016-11-05] MEDS ORDERED: ACETAMINOPHEN TAB 650MG DOSE (2X325MG) PO PRN (12:15)
[2016-11-05] MEDS ORDERED: FLEET ENEMA PR PRN (12:15)
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
[2016-11-05] MEDS: IPRATROPIUM 0.02% SOLN 0.5MG/2.5 ML NEB INH SCH ×2 (14:00→19:48)
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
--- NOTE | 2016-11-05 16:38 | HPEPDOC ---
General Date of Admission Nov 05, 2016 at 12:06 Chief Complaint The patient is a 66-year-old male Presented to the ER from [facility] because of right hip pain that was found to be a fracture. History of Present Illness Patient is a 66 year old male with a PMHx of Systolic CHF 2/2 Ischemic cardiomyopathy (EF: 30%), CAD (s/p CABG x3 [1995], Stent [2002]), A. fib (not on anticoagulation), Hypotension, DLP, DM2, Chronic anemia, Hypothyroidism, COPD, GERD, Anxiety, Chronic neck and back pain (2/2 C3-C7 fusion and spinal stenosis), Hx of osteomyelitis (s/p R ulna bone graft 1960). He presented to the ER from [facility] because he was found to have a fracture of his right hip. Patient has noted to have this persistent right hip pain since 2016. He received an XR on 08/2016 that was reported negative at that time. He notes that he ambulates very poorly and requires a walker. Since that point he has had continuous pain of the hip. Patient recently presented to the [facility] ER on 10/23/2016 for SOB. At that time he was found to have cardiogenic shock and NSTEMI. He was transferred to [facility] at that time. He was discharge from there on 11/04 to [facility]. Imaging of his hip was completed on 11/04/16 which was positive for a non-displaced femoral neck fracture. Patient was transferred to [facility] ER for evaluation. Patient notes that chronically has low blood pressure. He has not followed up with his regular master electrician, Dr. Araya since 08/2016. He notes that currently he does not have SOB, CP, palpitations, nausea, vomiting, abdominal pain, constipation, diarrhea or urinary symptoms. He denies any orthopnea or PND at this time. I have discussed the case with Dr. Tian (Orthopedic surgeon) and Dr. Araya ( Aquacultural Worker Supervisor). At this time the patient is at high risk for surgery and it was decided that the patient should be transferred back to [facility] for continued treatment. However, Dr. Velez has notified me that the facility is not willing to accept. Cardiology will be called on consult for evaluation and cardiac clearance. Home Medications Scheduled Aspirin (Aspir-81) 81 Mg Tab, 81 MG PO DAILY, (Reported) Atorvastatin Calcium (Atorvastatin Calcium) 20 Mg Tab, 20 MG PO QHS, (Reported) Buspirone HCl (Buspirone HCl) 5 Mg Tab, 5 MG PO TID, (Reported) Cephalexin Monohydrate (Keflex) 500 Mg Cap, 500 MG PO BID, (Reported) FINISH DATE 11/10 Docusate Sodium (Docusate Sodium) 100 Mg Tab, 100 MG PO DAILY, (Reported) Escitalopram Oxalate (Lexapro) 10 Mg Tab, 10 MG PO DAILY, (Reported) Furosemide (Furosemide) 20 Mg Tab, 20 MG PO DAILY, (Reported) Gabapentin (Gabapentin) 300 Mg Cap, 300 MG PO DAILY, (Reported) Gabapentin (Gabapentin) 600 Mg Tab, 600 MG PO QHS, (Reported) Ipratropium Giltner (Ipratropium Giltner) 0.5 Mg/2.5 Ml Soln, 0.5 MG INH TID, ( Reported) Levothyroxine Sodium (Synthroid) 100 Mcg Tab, 100 MCG PO DAILY, (Reported) Lidocaine (Lidoderm) 5 % Dis, 1 PATCH TD QHS, (Reported) 12 HOURS ON, 12 HOURS OFF FOR POST HERPATIC PAIN Lisinopril (Lisinopril) 2.5 Mg Tab, 2.5 MG PO DAILY, (Reported) Metoprolol Succinate (Metoprolol Succinate ER) 25 Mg Tab, 25 MG PO DAILY, ( Reported) Morphine Sulfate (Morphine Sulfate ER) 15 Mg Tab, 15 MG PO TID, (Reported) Pantoprazole Sodium (Pantoprazole Sodium) 40 Mg Tab, 40 MG PO DAILY, (Reported) Spironolactone (Spironolactone) 25 Mg Tab, 12.5 MG PO DAILY, (Reported) Scheduled PRN Bisacodyl (Dulcolax) 10 Mg Sup, 10 MG SD DAILY PRN for CONSTIPATION, (Reported) Oxycodone HCl (Oxycodone HCl) 5 Mg Tab, 5 MG PO Q6H PRN for PAIN, (Reported) Polyethylene Glycol (Miralax) 1 Pow Pow, 17 GM PO DAILY PRN for CONSTIPATION, ( Reported) Sodium Phosphate/Biphosphate (Enema 7-19 gm/118Ml) 1 Asya Asya, 1 ASYA SD DAILY PRN for CONSTIPATION, (Reported) Allergies Coded Allergies: Bee Venom (Unverified Allergy, Unknown, 01/06/16) Brompheniramine (Unverified Allergy, Unknown, 09/16/15) Contrast Media (Unverified Allergy, Unknown, UNKNOWN, 01/06/16) Hexachlorophene (Unverified Allergy, Unknown, 09/16/15) Iodinated Diagnostic Agents (Unverified Allergy, Unknown, 09/16/15) Lactose (Unverified Allergy, Unknown, 01/06/16) Pseudoephedrine (Unverified Allergy, Unknown, 09/16/15) Magnesium (Unverified Adverse Reaction, Unknown, DIARRHEA, 01/06/16) Quetiapine (Unverified Adverse Reaction, Unknown, NIGHT TERRORS, 01/06/16) Rifampin (Unverified Adverse Reaction, Unknown, DIARRHEA, 01/06/16) Past Medical History Medical History Systolic CHF 2/2 Ischemic cardiomyopathy (EF: 30%), CAD (s/p CABG x3 [1995], Stent [2002]), A. 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 Review of Symptoms Other systems Constitutional: Reports weight loss, Poor appetite, No recent trauma Eyes: No visual changes or eye pain Ears, Nose, Throat: Denies nose bleeds, or difficulty swallowing Cardiovascular: Denies chest pain, sweating, or orthopnea Respiratory: Denies cough, wheezing, or shortness of breath GI: Alfonso nausea, vomiting, abdominal pain, diarrhea or constipation : Denies pain with urination or frequency Musculoskeletal: Reports right hip pain and difficulty with walking Neuro / Psych: Denies muscle weakness or sensory loss Skin: No skin rashes noted All other review of systems negative; otherwise stated in history of present illness Vital Signs - Vitals: BP 96/66, HR 96, RR 18, Sat 99%NC3L, Temp 98.9F - General: Lying in bed, No acute distress, Speaking in full sentences, AAOx3 - HEENT: NC, AT, PERRLA - CVS: RRR, +S1S2, - Lungs: Fair air entry bilaterally, No appreciable wheezing / rhonchi / rales - Abdomen: Soft, Non-distended, Non-tender, + Bowel sounds x 4 - Extremities: 1+ pitting edema up to ankles, No calf tenderness; Right hip tenderness - Neuro: No focal motor or sensory deficit - Skin: No visible rashes Laboratory Data Labs 24H Laboratory Tests 2 11/05/16 08:42: Prothrombin Time 16.6H, Prothromb Time International Ratio 1.31 11/05/16 08:53: White Blood Count 5.1, Red Blood Count 3.23L, Hemoglobin 8.8L, Hematocrit 28.6L , Mean Corpuscular Volume 88.4, Mean Corpuscular Hemoglobin 27.4, Mean Corpuscular Hemoglobin Concent 31.0L, Red Cell Distribution Width 14.4, Platelet Count 282, Neutrophils (%) (Auto) 70.5H, Lymphocytes (%) (Auto) 12.8L, Monocytes (%) (Auto) 8.8H, Eosinophils (%) (Auto) 4.4H, Basophils (%) (Auto) 1.5H, Neutrophils # (Auto) 3.6, Lymphocytes # (Auto) 0.7L, Monocytes # (Auto) 0.5, Eosinophils # (Auto) 0.2, Basophils # (Auto) 0.1, Large Unclassified Cells % 2.1, Large Unclassified Cells # 0.1, Platelet Estimate NORMAL, Anion Gap 3L, Glomerular Filtration Rate > 60.0, Lactic Acid Level 0.5, Calcium Level 7.6L, Magnesium Level 2.0, Aspartate Amino Transf (AST/SGOT) 20, Alanine Aminotransferase (ALT/SGPT) 15, Alkaline Phosphatase 87, Total Bilirubin 0.4, Direct Bilirubin 0.2, Total Protein 5.1L, Albumin 2.1L, Albumin/Globulin Ratio 0.70L CBC/BMP Laboratory Tests 11/05/16 08:53 Red Blood Count 3.23 L, Mean Corpuscular Volume 88.4, Mean Corpuscular Hemoglobin 27.4, Mean Corpuscular Hemoglobin Concent 31.0 L, Red Cell Distribution Width 14.4, Neutrophils (%) (Auto) 70.5 H, Lymphocytes (%) (Auto) 12.8 L, Monocytes (%) (Auto) 8.8 H, Eosinophils (%) (Auto) 4.4 H, Basophils (%) (Auto) 1.5 H, Neutrophils # (Auto) 3.6, Lymphocytes # (Auto) 0.7 L, Monocytes # (Auto) 0.5, Eosinophils # (Auto) 0.2, Basophils # (Auto) 0.1 Microbiology Microbiology 11/05/16 Blood Culture, Received Pending 11/05/16 Blood Culture, Received Pending Plan / VTE VTE Prophylaxis Ordered?: Yes Plan Plan Right hip pain likely 2/2 non-displaced right femoral neck fracture - Presented to ER after he was found to have a fracture on imaging on 11/04/16 done at [facility] - Physical reveals right hip tenderness - XR Femor 11/05: fracture of right femoral neck may be pathological - CT hip 11/05: nonunion of femoral neck fracture with posterior displacement of distal component of the fracture and pseudoarthrosis; no evidence of abscess, osteomyelitis or neoplasm - Pelvic XR 11/05: Negative - Patient is a high risk surgical candidate and cardiology will be consulted for further evaluation - Case discussed with Dr. Araya and Dr. Tian both on consult Systolic CHF 2/2 Ischemic cardiomyopathy (EF: 30%) - Appears to be well compensated - c/w Lisinopril and Metoprolol - c/w existing dose of Furosemide and Spironolactone CAD (s/p CABG x3 [1995], Stent [2002]) - c/w ASA 81 and Atorvastatin 20 A. fib (not on anticoagulation) - c/w rate control with metoprolol succinate 25 Hypotension - SBP has run around high 80s to 90s DLP - c/w atorvastatin DM2 - c/w ISS Chronic anemia - Hg appears to be at baseline - Will continue to follow Hypothyroidism - c/w levothyroxine COPD - c/w Duoneb PRN Anxiety - c/w Escitalopram Chronic neck and back pain (2/2 C3-C7 fusion and spinal stenosis) - c/w pain control as outpatient (Gabapentin, MS Contin, Oxycontin) GERD - c/w Protonix DVT prophylaxis - c/w SCDs - Will discuss with surgery if no surgery is indicated will change to pharmacological LG HATCH MD Nov 05, 2016 16:38
[2016-11-05] MEDS ORDERED: DEXTROSE 50% 50 ML SYRINGE IV PRN (16:45)
[2016-11-05] MEDS ORDERED: IPRATROPIUM 0.5MG/ALBUTEROL 2.5MG INH SOL UD 3ML (DUONEB)(J7620) NEB PRN (16:45)
[2016-11-05] MEDS ORDERED: GLUCOSE 4 GM CHEW TABLET PO PRN (16:45)
[2016-11-05] MEDS ORDERED: GLUCAGON FOR INJ 1 MG VIAL (J1610) SC PRN (16:45)
[2016-11-05] MEDS: oxyCODONE 5MG TAB PO PRN (17:10)
[2016-11-05] MEDS: HumaLOG INSULIN (NovoLOG) PER UNIT SC SCH (17:30)
[2016-11-05 18:44] VITALS: BP 100/71
[2016-11-05] MEDS: busPIRone 5 MG TAB PO SCH ×3 (19:30→20:08)
[2016-11-05] MEDS: ESCITALOPRAM OXALATE 10 MG TAB (LEXAPRO) PO SCH (19:42)
[2016-11-05] MEDS: DOCUSATE SODIUM 100 MG CAP PO SCH (19:42)
[2016-11-05] MEDS: ASPIRIN 81 MG ENTERIC TAB PO SCH (19:42)
[2016-11-05] MEDS: SPIRONOLACTONE 12.5MG PER 1/2 TABLET PO SCH (19:43)
[2016-11-05] MEDS: PANTOPRAZOLE 40MG TAB (PROTONIX) PO SCH (19:43)
[2016-11-05 19:46] VITALS: BP 98/65
[2016-11-05 20:00] VITALS: BP 100/66
[2016-11-05] MEDS: MORPHINE 15 MG SA TAB PO SCH (20:08)
[2016-11-05] MEDS: CEPHALEXIN 500 MG CAP PO SCH (20:08)
[2016-11-05] MEDS: **NOTE PATIENT COMMENT** MISC XX SCH (20:12)
[2016-11-05] MEDS: GABAPENTIN 300 MG CAP PO SCH (20:12)
[2016-11-05] MEDS ORDERED: LIDOCAINE 5% (LIDODERM) PATCH TD SCH (21:00)
[2016-11-05] MEDS ORDERED: HumaLOG INSULIN (NovoLOG) PER UNIT SC SCH (21:00)
[2016-11-05] MEDS ORDERED: GABAPENTIN 300 MG CAP PO SCH (21:00)
[2016-11-05] MEDS ORDERED: ATORVASTATIN 20 MG TAB PO SCH (21:00)
[2016-11-05] MEDS: LISINOPRIL *2.5 MG* TAB PO SCH (21:25)
[2016-11-05] MEDS: METOPROLOL SUCC *XL* 25MG TAB (TopROL *XL*) PO SCH (21:26)
[2016-11-05] MEDS ORDERED: ONDANSETRON 4MG/2ML VIAL (J2405) IV SCH (22:00)
[2016-11-05 23:59] VITALS: BP 93/65
[2016-11-06] MEDS ORDERED: ONDANSETRON 4MG/2ML VIAL (J2405) IV PRN (01:34)
[2016-11-06] MEDS: oxyCODONE 5MG TAB PO PRN ×3 (02:55→18:41)
[2016-11-06 04:45] VITALS: BP 90/66
[2016-11-06] MEDS: NS 1,000 ML IV SCH ×2 (05:26→13:04)
[2016-11-06] MEDS ORDERED: LEVOTHYROXINE 100MCG TABLET (0.1MG) PO SCH (06:00)
[2016-11-06 06:33] LABS: BASO # 0.1 K/mm3 (0.0-0.2); BASO % 1.2 % (0.0-1.0); EOS # 0.1 K/mm3 (0.0-0.50); EOS % 2.9 % (0.0-3.0); LARGE UNSTAINED CELL # 0.1 K/mm3 (0.0-0.4); LARGE UNSTAINED CELL % 1.6 % (0.0-4.0); LYMPH # 0.8 K/mm3 (1.5-4.5); LYMPH % 14.5 % (24.0-44.0); MEAN CORPUSCULAR HEMOGLOBIN 28.2 pg (27.0-33.0); MEAN CORPUSCULAR VOLUME 88.2 fl (80.0-96.0); MONO # 0.5 K/mm3 (0.0-0.8); MONO % 9.1 % (0.0-5.0); NEUTROPHILS # 3.5 K/mm3 (1.8-7.7); NEUTROPHILS % 70.6 % (36.0-66.0); PLATELET COUNT, AUTOMATED 255 k/mm3 (150-450); RED CELL DISTRIBUTION WIDTH 14.2 % (11.5-14.5); WHITE BLOOD COUNT 4.9 K/mm3 (4.0-10.0)
[2016-11-06 06:51] LABS: ALBUMIN/GLOBULIN RATIO 0.61 (1.00-1.93); ALKALINE PHOSPHATASE 81 U/L (45-117); ALT/SGPT 15 U/L (12-78); ANION GAP 3 MEQ/L (8-16); AST/SGOT 18 U/L (15-37); BILIRUBIN,TOTAL 0.4 MG/DL (0.2-1.0); BLOOD UREA NITROGEN 10 MG/DL (7-18); CALCIUM LEVEL 8.1 MG/DL (8.8-10.2); CARBON DIOXIDE LEVEL 31 MEQ/L (21-32); CHLORIDE LEVEL 91 MEQ/L (98-107); CREATININE FOR GFR 0.52 MG/DL (0.70-1.30); GLOMERULAR FILTRATION RATE > 60.0 (>49); GLUCOSE, FASTING 82 MG/DL (80-110); MAGNESIUM LEVEL 1.8 MG/DL (1.8-2.4); POTASSIUM SERUM 4.8 MEQ/L (3.5-5.1); SODIUM LEVEL 125 MEQ/L (136-145); TOTAL PROTEIN 5.3 GM/DL (6.4-8.2)
[2016-11-06] MEDS: HumaLOG INSULIN (NovoLOG) PER UNIT SC SCH ×3 (06:52→17:28)
[2016-11-06] MEDS: IPRATROPIUM 0.02% SOLN 0.5MG/2.5 ML NEB INH SCH ×2 (07:29→13:46)
[2016-11-06 08:00] VITALS: BP 91/65
[2016-11-06 08:03] LABS: FREE T4 1.33 NG/DL (0.76-1.46)
[2016-11-06 08:41] VITALS: BP 89/62
[2016-11-06] MEDS: SPIRONOLACTONE 12.5MG PER 1/2 TABLET PO SCH (08:52)
[2016-11-06] MEDS: LISINOPRIL *2.5 MG* TAB PO SCH (08:52)
[2016-11-06] MEDS: METOPROLOL SUCC *XL* 25MG TAB (TopROL *XL*) PO SCH (08:52)
[2016-11-06] MEDS: CEPHALEXIN 500 MG CAP PO SCH (08:53)
[2016-11-06] MEDS: PANTOPRAZOLE 40MG TAB (PROTONIX) PO SCH (08:54)
[2016-11-06] MEDS: ESCITALOPRAM OXALATE 10 MG TAB (LEXAPRO) PO SCH (08:54)
[2016-11-06] MEDS: ASPIRIN 81 MG ENTERIC TAB PO SCH (08:54)
[2016-11-06] MEDS: MORPHINE 15 MG SA TAB PO SCH (08:54)
[2016-11-06] MEDS: busPIRone 5 MG TAB PO SCH ×2 (08:55→17:28)
[2016-11-06] MEDS: DOCUSATE SODIUM 100 MG CAP PO SCH (08:55)
[2016-11-06] MEDS: GABAPENTIN 300 MG CAP PO SCH (08:55)
[2016-11-06] MEDS ORDERED: FUROSEMIDE 40 MG TAB PO SCH (09:00)
[2016-11-06] MEDS: **NOTE PATIENT COMMENT** MISC XX SCH (09:54)
[2016-11-06] MEDS ORDERED: FUROSEMIDE 20 MG TAB PO ONE ×2 (10:00→13:00)
--- NOTE | 2016-11-06 10:59 | DS.PDOC ---
Discharge Summary General Date of Admission Nov 05, 2016 at 12:06 Date of Discharge 11/06/2016 Discharge Summary PROCEDURES PERFORMED DURING STAY: None. ADMITTING DIAGNOSES: 1. Right hip pain - likely 2/2 non-displaced right femoral neck fracture 2. Systolic CHF- 2/2 Ischemic cardiomyopathy (EF: 30%) COMPLICATIONS/CHIEF COMPLAINT: The patient is a 66-year-old male Presented to the ER from [facility] because of right hip pain that was found to be a fracture. HISTORY OF PRESENT ILLNESS: Patient is a 66 year old male with a PMHx of Systolic CHF 2/2 Ischemic cardiomyopathy (EF: 30%), CAD (s/p CABG x3 [1995], Stent [2002]), A. fib (not on anticoagulation), Hypotension, DLP, DM2, Chronic anemia, Hypothyroidism, COPD, GERD, Anxiety, Chronic neck and back pain (2/2 C3-C7 fusion and spinal stenosis), Hx of osteomyelitis (s/p R ulna bone graft 1960). He presented to the ER from [facility] because he was found to have a fracture of his right hip. Patient has noted to have this persistent right hip pain since 2016. He received an XR on 08/2016 that was reported negative at that time. He notes that he ambulates very poorly and requires a walker. Since that point he has had continuous pain of the hip. Patient recently presented to the [facility] ER on 10/23/2016 for SOB. At that time he was found to have cardiogenic shock and NSTEMI. He was transferred to [facility] at that time. He was discharge from there on 11/04 to [facility]. Imaging of his hip was completed on 11/04/16 which was positive for a non-displaced femoral neck fracture. Patient was transferred to [facility] ER for evaluation. Patient notes that chronically has low blood pressure. 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 Araya since 08/2016. He notes that currently he does not have SOB, CP, palpitations, nausea, vomiting, abdominal pain, constipation, diarrhea or urinary symptoms. He denies any orthopnea or PND at this time. HOSPITAL COURSE: Right hip pain - likely 2/2 non-displaced right femoral neck fracture - Presented to ER after he was found to have a fracture on imaging on 11/04/16 done at [facility] - Physical reveals right hip tenderness - XR Femor 11/05: fracture of right femoral neck, may be pathological - CT hip 11/05: nonunion of femoral neck fracture with posterior displacement of distal component of the fracture and pseudoarthrosis; no evidence of abscess, osteomyelitis or neoplasm - Pelvic XR 11/05: Negative - Case discussed with cardiology (Dr. Araya); will evaluate today - Case discussed with orthopedic surgery (Dr. oRbles); will need higher level of care for cardiac monitoring for surgery Systolic CHF - 2/2 Ischemic cardiomyopathy (EF: 30%) - Appears to be well compensated - c/w Lisinopril and Metoprolol - c/w existing dose of Spironolactone - Increased dose of Furosemide to 40 PO Hyponatremia; hypotonic; likely hypervolemic / euvolemic - Possibly related to CHF - Will check Urine Sodium, Creatinine and Osmolality - Will increase dose of lasix CAD (s/p CABG x3 [1995], Stent [2002]) - c/w ASA 81 and Atorvastatin 20 A. fib (not on anticoagulation) - c/w rate control with metoprolol succinate 25 Hypotension - SBP has run around high 80s to 90s DLP - c/w atorvastatin DM2 - c/w ISS Chronic anemia - Hg appears to be at baseline - Hg stable - will follow Hypothyroidism - c/w levothyroxine COPD - c/w Duoneb PRN Anxiety - c/w Escitalopram Chronic neck and back pain (2/2 C3-C7 fusion and spinal stenosis) - c/w pain control as outpatient (Gabapentin, MS Contin, Oxycontin) GERD - c/w Protonix DVT prophylaxis - c/w SCDs DISCHARGE MEDICATIONS: Please see below. ALLERGIES: Please see below. PHYSICAL EXAMINATION ON DISCHARGE: VITAL SIGNS: Please see below. Vitals (See below) General: Lying in bed, no acute distress, comfortable, AAOx3 HEENT: NC, AT CVS: +S1S2 Lungs: Fair air entry b/l, -w/r/r Abdomen: Soft, ND, NT, +BSx4 Extremities: 1+ pitting edema up to ankles bilaterally, - Calf tenderness; Right hip pain / mild erythema LABORATORY DATA: Please see below. DISCHARGE PLAN / DISPOSITION: Transfer to [facility] for continued cardiac monitoring, pre and post surgery. Will accept patient back for continued rehabilitation if required. DISCHARGE CONDITION: Guarded TIME SPENT ON DISCHARGE: Greater than 35 minutes. Vital Signs/I&Os Vital Signs Date Time Temp Pulse Resp B/P (MAP) Pulse Ox O2 Delivery O2 Flow Rate FiO2 11/06/16 08:54 18 Nasal Cannula 2.0 11/06/16 08:41 89/62 (71) 11/06/16 08:00 97.8 77 100 I&O- Last 24 Hours up to 6 AM 11/06/16 06:00 Intake Total 1440 ml Output Total 700 ml Balance 740 ml Laboratory Data Labs 24H Laboratory Tests 2 11/05/16 17:31: Bedside Glucose (Misc Panel) 111 11/05/16 20:10: Bedside Glucose (Misc Panel) 142H 11/06/16 05:18: Osmolality 264L, B-Type Natriuretic Peptide 1540H 11/06/16 05:24: White Blood Count 4.9, Red Blood Count 3.08L, Hemoglobin 8.7L, Hematocrit 27.1L , Mean Corpuscular Volume 88.2, Mean Corpuscular Hemoglobin 28.2, Mean Corpuscular Hemoglobin Concent 32.0, Red Cell Distribution Width 14.2, Platelet Count 255, Neutrophils (%) (Auto) 70.6H, Lymphocytes (%) (Auto) 14.5L, Monocytes (%) (Auto) 9.1H, Eosinophils (%) (Auto) 2.9, Basophils (%) (Auto) 1.2H , Neutrophils # (Auto) 3.5, Lymphocytes # (Auto) 0.8L, Monocytes # (Auto) 0.5, Eosinophils # (Auto) 0.1, Basophils # (Auto) 0.1, Large Unclassified Cells % 1.6 , Large Unclassified Cells # 0.1, Anion Gap 3L, Glomerular Filtration Rate > 60.0, Blood Urea Nitrogen 10, Creatinine 0.52L, Sodium Level 125L, Potassium Level 4.8, Chloride Level 91L, Carbon Dioxide Level 31, Calcium Level 8.1L, Aspartate Amino Transf (AST/SGOT) 18, Alanine Aminotransferase (ALT/SGPT) 15, Alkaline Phosphatase 81, Total Bilirubin 0.4, Total Protein 5.3L, Albumin 2.0L, Magnesium Level 1.8, Albumin/Globulin Ratio 0.61L, Thyroid Stimulating Hormone ( TSH) 3.890H, Free Thyroxine 1.33 CBC/BMP Laboratory Tests 11/06/16 05:24 Red Blood Count 3.08 L, Mean Corpuscular Volume 88.2, Mean Corpuscular Hemoglobin 28.2, Mean Corpuscular Hemoglobin Concent 32.0, Red Cell Distribution Width 14.2, Neutrophils (%) (Auto) 70.6 H, Lymphocytes (%) (Auto) 14.5 L, Monocytes (%) (Auto) 9.1 H, Eosinophils (%) (Auto) 2.9, Basophils (%) ( Auto) 1.2 H, Neutrophils # (Auto) 3.5, Lymphocytes # (Auto) 0.8 L, Monocytes # ( Auto) 0.5, Eosinophils # (Auto) 0.1, Basophils # (Auto) 0.1, Calcium Level 8.1 L , Aspartate Amino Transf (AST/SGOT) 18, Alanine Aminotransferase (ALT/SGPT) 15, Alkaline Phosphatase 81, Total Bilirubin 0.4, Total Protein 5.3 L, Albumin 2.0 L FSBS Laboratory Tests Test 11/05/16 17:31 11/05/16 20:10 Range/Units Bedside Glucose (Misc Panel) 111 142 80-115 MG/DL Microbiology Microbiology 11/05/16 Blood Culture - Preliminary, Resulted No growth after 24 hours . All specim... 11/05/16 Blood Culture - Preliminary, Resulted No growth after 24 hours . All specim... Discharge Medications Scheduled Aspirin (Aspir-81) 81 Mg Tab, 81 MG PO DAILY, (Reported) Atorvastatin Calcium (Atorvastatin Calcium) 20 Mg Tab, 20 MG PO QHS, (Reported) Buspirone HCl (Buspirone HCl) 5 Mg Tab, 5 MG PO TID, (Reported) Cephalexin Monohydrate (Keflex) 500 Mg Cap, 500 MG PO BID, (Reported) FINISH DATE 11/10 Docusate Sodium (Docusate Sodium) 100 Mg Tab, 100 MG PO DAILY, (Reported) Escitalopram Oxalate (Lexapro) 10 Mg Tab, 10 MG PO DAILY, (Reported) Furosemide (Furosemide) 20 Mg Tab, 20 MG PO DAILY, (Reported) Gabapentin (Gabapentin) 300 Mg Cap, 300 MG PO DAILY, (Reported) Gabapentin (Gabapentin) 600 Mg Tab, 600 MG PO QHS, (Reported) Ipratropium Jefferson (Ipratropium Jefferson) 0.5 Mg/2.5 Ml Soln, 0.5 MG INH TID, ( Reported) Levothyroxine Sodium (Synthroid) 100 Mcg Tab, 100 MCG PO DAILY, (Reported) Lidocaine (Lidoderm) 5 % Dis, 1 PATCH TD QHS, (Reported) 12 HOURS ON, 12 HOURS OFF FOR POST HERPATIC PAIN Lisinopril (Lisinopril) 2.5 Mg Tab, 2.5 MG PO DAILY, (Reported) Metoprolol Succinate (Metoprolol Succinate ER) 25 Mg Tab, 25 MG PO DAILY, ( Reported) Morphine Sulfate (Morphine Sulfate ER) 15 Mg Tab, 15 MG PO TID, (Reported) Pantoprazole Sodium (Pantoprazole Sodium) 40 Mg Tab, 40 MG PO DAILY, (Reported) Spironolactone (Spironolactone) 25 Mg Tab, 12.5 MG PO DAILY, (Reported) Scheduled PRN Bisacodyl (Dulcolax) 10 Mg Sup, 10 MG NC DAILY PRN for CONSTIPATION, (Reported) Oxycodone HCl (Oxycodone HCl) 5 Mg Tab, 5 MG PO Q6H PRN for PAIN, (Reported) Polyethylene Glycol (Miralax) 1 Pow Pow, 17 GM PO DAILY PRN for CONSTIPATION, ( Reported) Sodium Phosphate/Biphosphate (Enema 7-19 gm/118Ml) 1 Asya Asya, 1 ASYA NC DAILY PRN for CONSTIPATION, (Reported) Allergies Coded Allergies: Bee Venom (Unverified Allergy, Unknown, 01/06/16) Brompheniramine (Unverified Allergy, Unknown, 09/16/15) Contrast Media (Unverified Allergy, Unknown, UNKNOWN, 01/06/16) Hexachlorophene (Unverified Allergy, Unknown, 09/16/15) Iodinated Diagnostic Agents (Unverified Allergy, Unknown, 09/16/15) Lactose (Unverified Allergy, Unknown, 01/06/16) Pseudoephedrine (Unverified Allergy, Unknown, 09/16/15) Magnesium (Unverified Adverse Reaction, Unknown, DIARRHEA, 01/06/16) Quetiapine (Unverified Adverse Reaction, Unknown, NIGHT TERRORS, 01/06/16) Rifampin (Unverified Adverse Reaction, Unknown, DIARRHEA, 01/06/16) LG HATCH MD Nov 06, 2016 10:59
--- NOTE | 2016-11-06 11:25 | ECGEPIP ---
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
[2016-11-06 12:00] VITALS: BP 107/75
[2016-11-06 15:43] LABS: ANION GAP 4 MEQ/L (8-16); BLOOD UREA NITROGEN 9 MG/DL (7-18); CALCIUM LEVEL 7.8 MG/DL (8.8-10.2); CARBON DIOXIDE LEVEL 33 MEQ/L (21-32); CHLORIDE LEVEL 89 MEQ/L (98-107); CREATININE FOR GFR 0.51 MG/DL (0.70-1.30); GLOMERULAR FILTRATION RATE > 60.0 (>49); GLUCOSE, FASTING 102 MG/DL (80-110); MAGNESIUM LEVEL 1.8 MG/DL (1.8-2.4); SODIUM LEVEL 126 MEQ/L (136-145)
[2016-11-06 16:00] VITALS: BP 97/65
[2016-11-08 09:54] LABS: CORTISOL BASELINE 9.1 UG/DL (4.3-22.4)
== END 2016-11-06 18:54 | disposition short-term general hospital (02) | DRG 536 ==
LOC: M ED 08:28 → EDBD 08:28 → M ED INP 12:06 → M PCU 18:37
PROVIDERS: ADMIT Internal Medicine; ATTEND Internal Medicine
DX: S72.044A Nondisplaced fracture of base of neck of right femur, initial encounter for closed fracture (principal); I50.22 Chronic systolic (congestive) heart failure; E87.0 Hyperosmolality and hypernatremia; I25.5 Ischemic cardiomyopathy; I48.91 Unspecified atrial fibrillation; E11.9 Type 2 diabetes mellitus without complications; I95.9 Hypotension, unspecified; D64.9 Anemia, unspecified; E03.9 Hypothyroidism, unspecified; K21.9 Gastro-esophageal reflux disease without esophagitis; J44.9 Chronic obstructive pulmonary disease, unspecified; F41.9 Anxiety disorder, unspecified; M54.2 Cervicalgia; M54.5 Low back pain; I25.2 Old myocardial infarction; Z79.899 Other long term (current) drug therapy; Z79.82 Long term (current) use of aspirin; Z88.8 Allergy status to other drugs, medicaments and biological substances; Z91.040 Latex allergy status; Z91.041 Radiographic dye allergy status; Z91.038 Other insect allergy status; W22.09XA Striking against other stationary object, initial encounter; Y92.009 Unspecified place in unspecified non-institutional (private) residence as the place of occurrence of the external cause

== ENCOUNTER → 2016-12-02 | Outpatient (REF) ==
[~2016-12-02] MED LIST changes: +ASPI81TA85 PO; +ATOR1TAB21 PO; +DOCU100T8 PO; +DULC10SU2 PR; +ENEMENE16 PR; +GABA600T PO; +IPRA2IN INH; +KEFL500C17 PO; +LISI2.5T3 PO; +MIRA33504 PO; +MORP-38 PO; +OXYC-517 PO
[2016-12-02 09:38] LABS: MEAN CORPUSCULAR HEMOGLOBIN 28.3 pg (27.0-33.0); MEAN CORPUSCULAR HGB CONC 32.4 g/dl (32.0-36.5); MEAN CORPUSCULAR VOLUME 87.2 fl (80.0-96.0); RED CELL DISTRIBUTION WIDTH 14.5 % (11.5-14.5); WHITE BLOOD COUNT 7.9 K/mm3 (4.0-10.0)
[2016-12-02 09:44] LABS: ANION GAP 7 MEQ/L (8-16); BLOOD UREA NITROGEN 18 MG/DL (7-18); CALCIUM LEVEL 7.6 MG/DL (8.8-10.2); CARBON DIOXIDE LEVEL 34 MEQ/L (21-32); CHLORIDE LEVEL 90 MEQ/L (98-107); CREATININE FOR GFR 0.47 MG/DL (0.70-1.30); GLOMERULAR FILTRATION RATE > 60.0 (>49); GLUCOSE, FASTING 83 MG/DL (80-110); POTASSIUM SERUM 4.3 MEQ/L (3.5-5.1); SODIUM LEVEL 131 MEQ/L (136-145)
== END ==
LOC: SKLAB3 07:19
PROVIDERS: ATTEND Internal Medicine
DX: D64.9 Anemia, unspecified (principal); E03.9 Hypothyroidism, unspecified; I50.9 Heart failure, unspecified

== ENCOUNTER → 2016-12-02 | Outpatient (REF) | payer MEDICARE, BC, OTHER | LOC: SKLAB3 04:14 | PROVIDERS: ATTEND Internal Medicine | DX: I50.9 Heart failure, unspecified (principal) ==

== ENCOUNTER → 2016-12-06 | Outpatient (REF) ==
[2016-12-06 08:17] LABS: MEAN CORPUSCULAR HEMOGLOBIN 28.7 pg (27.0-33.0); MEAN CORPUSCULAR HGB CONC 32.8 g/dl (32.0-36.5); MEAN CORPUSCULAR VOLUME 87.5 fl (80.0-96.0); RED CELL DISTRIBUTION WIDTH 14.8 % (11.5-14.5); WHITE BLOOD COUNT 7.1 K/mm3 (4.0-10.0)
[2016-12-06 08:37] LABS: ANION GAP 7 MEQ/L (8-16); BLOOD UREA NITROGEN 14 MG/DL (7-18); CARBON DIOXIDE LEVEL 33 MEQ/L (21-32); CHLORIDE LEVEL 91 MEQ/L (98-107); GLOMERULAR FILTRATION RATE > 60.0 (>49); GLUCOSE, FASTING 98 MG/DL (80-110); POTASSIUM SERUM 4.1 MEQ/L (3.5-5.1); SODIUM LEVEL 131 MEQ/L (136-145)
== END ==
LOC: SKLAB3 07:00
PROVIDERS: ATTEND Internal Medicine
DX: I50.9 Heart failure, unspecified (principal); D64.9 Anemia, unspecified

== ENCOUNTER → 2016-12-13 | Outpatient (REF) ==
--- NOTE | 2016-12-13 14:47 | REP ---
RIGHT KNEE, FOUR VIEWS: HISTORY: Pain. There is no acute fracture or dislocation. There is narrowing of the joint spaces. Osteophytes are present on the patella and tibia. The bony structure is osteopenic. Surgical clips are present in the overlying soft tissue. IMPRESSION: Degenerative change as described above. Signed by Hunter Herring MD 12/13/2016 02:49 P
== END ==
LOC: SKLAB3 07:08
PROVIDERS: ATTEND Internal Medicine
DX: G89.29 Other chronic pain (principal)

== ENCOUNTER → 2016-12-13 | Outpatient (REF) ==
[2016-12-13 12:21] LABS: ALBUMIN 2.2 GM/DL (3.2-5.2); ALBUMIN/GLOBULIN RATIO 0.55 (1.00-1.93); ALKALINE PHOSPHATASE 87 U/L (45-117); ALT/SGPT 15 U/L (12-78); ANION GAP 8 MEQ/L (8-16); AST/SGOT 20 U/L (15-37); BILIRUBIN,TOTAL 0.6 MG/DL (0.2-1.0); BLOOD UREA NITROGEN 14 MG/DL (7-18); CALCIUM LEVEL 7.8 MG/DL (8.8-10.2); CARBON DIOXIDE LEVEL 32 MEQ/L (21-32); CHLORIDE LEVEL 92 MEQ/L (98-107); GLOMERULAR FILTRATION RATE > 60.0 (>49); GLUCOSE, FASTING 130 MG/DL (80-110); POTASSIUM SERUM 4.6 MEQ/L (3.5-5.1); SODIUM LEVEL 132 MEQ/L (136-145); TOTAL PROTEIN 6.2 GM/DL (6.4-8.2)
== END ==
LOC: SKLAB3 09:33
PROVIDERS: ATTEND Internal Medicine
DX: I50.9 Heart failure, unspecified (principal)

== ENCOUNTER → 2016-12-21 | Outpatient (REF) ==
[2016-12-21 09:07] LABS: MEAN CORPUSCULAR HGB CONC 32.9 g/dl (32.0-36.5); MEAN CORPUSCULAR VOLUME 85.2 fl (80.0-96.0); RED CELL DISTRIBUTION WIDTH 14.4 % (11.5-14.5)
[2016-12-21 09:10] LABS: ANION GAP 7 MEQ/L (8-16); BLOOD UREA NITROGEN 12 MG/DL (7-18); CALCIUM LEVEL 8.3 MG/DL (8.8-10.2); CARBON DIOXIDE LEVEL 33 MEQ/L (21-32); CHLORIDE LEVEL 94 MEQ/L (98-107); CREATININE FOR GFR 0.43 MG/DL (0.70-1.30); GLOMERULAR FILTRATION RATE > 60.0 (>49); GLUCOSE, FASTING 91 MG/DL (80-110); POTASSIUM SERUM 3.9 MEQ/L (3.5-5.1); SODIUM LEVEL 134 MEQ/L (136-145)
== END ==
LOC: SKLAB3 07:00
PROVIDERS: ATTEND Internal Medicine
DX: I50.9 Heart failure, unspecified (principal)

== ENCOUNTER → 2016-12-27 | Outpatient (REF) ==
[2016-12-27 08:59] LABS: MEAN CORPUSCULAR HEMOGLOBIN 26.9 pg (27.0-33.0); MEAN CORPUSCULAR HGB CONC 31.2 g/dl (32.0-36.5); MEAN CORPUSCULAR VOLUME 86.3 fl (80.0-96.0); RED CELL DISTRIBUTION WIDTH 14.7 % (11.5-14.5); WHITE BLOOD COUNT 6.1 K/mm3 (4.0-10.0)
[2016-12-27 09:24] LABS: ANION GAP 10 MEQ/L (8-16); BLOOD UREA NITROGEN 14 MG/DL (7-18); CALCIUM LEVEL 8.1 MG/DL (8.8-10.2); CARBON DIOXIDE LEVEL 31 MEQ/L (21-32); CHLORIDE LEVEL 92 MEQ/L (98-107); CREATININE FOR GFR 0.48 MG/DL (0.70-1.30); GLOMERULAR FILTRATION RATE > 60.0 (>49); GLUCOSE, FASTING 92 MG/DL (80-110); SODIUM LEVEL 133 MEQ/L (136-145)
== END ==
LOC: SKLAB3 08:00
PROVIDERS: ATTEND Internal Medicine
DX: I50.9 Heart failure, unspecified (principal); E03.9 Hypothyroidism, unspecified; D64.9 Anemia, unspecified

== ENCOUNTER → 2016-12-28 | Outpatient (REF) | payer MEDICARE, BC, OTHER | LOC: SKLAB3 22:06 | PROVIDERS: ATTEND Internal Medicine | DX: R35.0 Frequency of micturition (principal) ==

== ENCOUNTER → 2017-01-03 | Outpatient (REF) ==
[2017-01-03 09:11] LABS: ANION GAP 7 MEQ/L (8-16); BLOOD UREA NITROGEN 18 MG/DL (7-18); CALCIUM LEVEL 8.7 MG/DL (8.8-10.2); CARBON DIOXIDE LEVEL 33 MEQ/L (21-32); CHLORIDE LEVEL 93 MEQ/L (98-107); CREATININE FOR GFR 0.51 MG/DL (0.70-1.30); GLOMERULAR FILTRATION RATE > 60.0 (>49); GLUCOSE, FASTING 100 MG/DL (80-110); PERCENT SATURATION 12.6 % (19.7-50.0); SODIUM LEVEL 133 MEQ/L (136-145); TOTAL IRON BINDING CAPACITY 190 UG/DL (250-450)
[2017-01-03 09:49] LABS: FOLATE 22.9 NG/ML (>5.4); VITAMIN B12 LEVEL 747 PG/ML (247-911)
== END ==
LOC: SKLAB3 12:42
PROVIDERS: ATTEND Internal Medicine
DX: I50.9 Heart failure, unspecified (principal); D64.9 Anemia, unspecified

== ENCOUNTER → 2017-02-01 | Outpatient (CLI) | payer MEDICARE, BC, OTHER ==
--- NOTE | 2017-02-01 12:18 | REP ---
MRI RIGHT KNEE: TECHNIQUE: Axial proton density fat saturation, sagittal proton density T2 STIR, water excitation, coronal proton density, proton density fat saturation. The menisci show no evidence of a tear. The cruciate and collateral ligaments are intact. The extensor mechanism is intact. There is mild global chondromalacia. There is mild subchondral marrow edema in the medial patellar facet. There is diffuse marrow edema in the femoral condyles, which may present some bone bruising. There is evidence of a bone infarct centrally in the distal femoral shaft. There is a small joint effusion. There is mild diffuse ill-defined soft tissue edema posteriorly. IMPRESSION: No evidence of meniscal tear. Cruciate and collateral ligaments intact. Mild global chondromalacia. Marrow edema in the femoral condyles may represent bone bruising. Small joint effusion. Signed by Matias Garsia MD 02/01/2017 07:59 P
== END ==
LOC: M RAD 08:41
PROVIDERS: ATTEND Family Medicine
DX: M25.561 Pain in right knee (principal)

== ENCOUNTER → 2017-02-11 | Outpatient (REF) | payer MEDICARE, BC, OTHER ==
[2017-02-11 17:52] LABS: BASO % 0.6 % (0.0-1.0); EOS # 0.1 10^3/uL (0.0-0.50); EOS % 1.7 % (0.0-3.0); IMMATURE GRANULOCYTE % 0.3 % (0-0); LYMPH # 1.1 10^3/uL (1.5-4.5); LYMPH % 16.3 % (24.0-44.0); MEAN CORPUSCULAR HEMOGLOBIN 27.1 pg (27.0-33.0); MEAN CORPUSCULAR HGB CONC 31.4 g/dl (32.0-36.5); MEAN CORPUSCULAR VOLUME 86.1 fl (80.0-96.0); MONO % 15.7 % (0.0-5.0); NEUTROPHILS # 4.2 10^3/uL (1.8-7.7); NEUTROPHILS % 65.4 % (36.0-66.0); PLATELET COUNT, AUTOMATED 271 10^3/uL (150-450); RED CELL DISTRIBUTION WIDTH 15.6 % (11.5-14.5); WHITE BLOOD COUNT 6.5 10^3/uL (4.0-10.0)
[2017-02-11 18:14] LABS: FOLATE 21.9 NG/ML; VITAMIN B12 LEVEL 1654 PG/ML
[2017-02-11 18:15] LABS: ALBUMIN 2.5 GM/DL (3.2-5.2); ALBUMIN/GLOBULIN RATIO 0.71 (1.00-1.93); ALKALINE PHOSPHATASE 84 U/L (45-117); ALT/SGPT 11 U/L (12-78); ANION GAP 6 MEQ/L (8-16); AST/SGOT 11 U/L (7-37); BILIRUBIN,TOTAL 0.5 MG/DL (0.2-1.0); BLOOD UREA NITROGEN 13 MG/DL (7-18); CALCIUM LEVEL 8.3 MG/DL (8.8-10.2); CARBON DIOXIDE LEVEL 37 MEQ/L (21-32); CHLORIDE LEVEL 89 MEQ/L (98-107); CHOLESTEROL LEVEL 105 MG/DL (<200); CREATININE FOR GFR 0.72 MG/DL (0.70-1.30); FERRITIN 696 NG/ML (26-388); FREE T4 1.55 NG/DL (0.76-1.46); GLOMERULAR FILTRATION RATE > 60.0 (>49); GLUCOSE, FASTING 106 MG/DL (80-110); MAGNESIUM LEVEL 2.1 MG/DL (1.8-2.4); PERCENT SATURATION 12.4 % (19.7-50.0); SODIUM LEVEL 132 MEQ/L (136-145); TOTAL IRON BINDING CAPACITY 161 UG/DL (250-450); TRIGLYCERIDES LEVEL 47 MG/DL (<150)
== END ==
LOC: M LAB REF 17:15
PROVIDERS: ATTEND Family Medicine
DX: E11.9 Type 2 diabetes mellitus without complications (principal); D64.9 Anemia, unspecified; E43 Unspecified severe protein-calorie malnutrition; I25.10 Atherosclerotic heart disease of native coronary artery without angina pectoris; E03.9 Hypothyroidism, unspecified

== ENCOUNTER → 2017-03-28 | Outpatient (CLI) | payer MEDICARE, BC, OTHER ==
--- NOTE | 2017-03-30 08:59 | REP ---
Procedure: PICC line insertion with Gavin-Suhail The procedure was performed under the direct supervision of Dr. Garsia. The risks and benefits of the procedure were explained to the patient and informed consent was obtained. The right basilic vein was localized using ultrasound guidance. The skin was prepped and draped in a sterile fashion. 2% lidocaine was used as a local anesthetic. Using ultrasound guidance the basilic vein was cannulated and a 0.018 guidewire was inserted and advanced to the SVC using fluoroscopic guidance. The needle was removed and a 5.5 E[place]rean dilator and peel-away sheath was inserted over the guide wire. A 5.5 [place]an dual lumen catheter was cut to length of 43 cm. The dilator was removed and the catheter was inserted over the guide wire with the tip ending in the SVC. The peel-away sheath was removed and the catheter was flushed with heparinized saline as per Hospital protocol. The catheter was affixed to the skin and a sterile dressing was applied. The the patient tolerated the procedure well and there were no immediate complications. 1.1 minutes of fluoro time was utilized for this procedure. Reviewed by AMBAR Peres 03/28/2017 04:00 PSigned by Matias Garsia MD 03/30/2017 08:50 A
== END ==
LOC: M RADPRO 13:05
PROVIDERS: ATTEND Family Medicine
DX: D64.9 Anemia, unspecified (principal); E43 Unspecified severe protein-calorie malnutrition; Z98.84 Bariatric surgery status; Z95.1 Presence of aortocoronary bypass graft; Z96.649 Presence of unspecified artificial hip joint; Z91.041 Radiographic dye allergy status; Z91.011 Allergy to milk products; Z91.030 Bee allergy status; Z88.8 Allergy status to other drugs, medicaments and biological substances; Z79.899 Other long term (current) drug therapy